=== PATIENT | female | born 1990 | race Caucasian/White ===

== ENCOUNTER → 2018-06-23 15:13 | Outpatient (CLI) | payer MEDICAID, SELFPAY ==
[2018-06-23 18:28] LABS: Chlamydia Trachomatis by PCR Negative (Negative); Neisserai gonorrhoeae by PCR Negative (Negative); Probe Check PASS; Sample Adequacy Control PASS; Specimen Processing Control PASS
== END ==
PROVIDERS: Family Provider Family Medicine; PCP Family Medicine; Visit Provider Nurse Practitioner Women's Health
DX: Z11.3 Encounter for screening for infections with a predominantly sexual mode of transmission (principal)
CPT/HCPCS: 87491; 87591

== ENCOUNTER 2018-12-20 16:37 | Emergency (ER) | payer MEDICAID, SELFPAY ==
[2018-12-15 13:11] VITALS: BMI 31.4
[2018-12-20 16:38] VITALS: BP 134/74; PULSE 88; RESP 16; TEMP 37.3; O2SAT 100; BMI 30.7
--- NOTE | 2018-12-20 16:59 | US_ITS ---
STUDY: ULTRASOUND OF THE FEMALE PELVIS - COMPLETE REASON FOR EXAM: Female, 28 years old. Pain and bleeding after intercourse since IUD placement LMP: Unknown. TECHNIQUE: Transvaginal TECHNICAL QUALITY: Adequate. COMPARISON: None. FINDINGS: The uterus is anteverted and is in a midline position. The uterus measures 6.8 x 4.9 x 3.2 cm. Normal uterine cervix. The endometrium measures 2 mm in thickness, and is hyperechoic. There is no demonstrated endometrial mass. There is no demonstrated myometrial mass. I.U.D. - The patient does have an I.U.D. the IUD is present within the endometrial canal of the mid uterus. The right ovary is visualized. The right ovary measures 2.5 x 1.9 x 2.1 cm. There is no right ovarian cyst or ovarian mass. There is no visualized right adnexal mass or complex lesion. There is normal arterial and normal venous vascularity. The left ovary is visualized. The left ovary measures 4.1 x 3.1 x 2.6 cm. There is a septated left ovarian cyst measuring 2.6 x 2.0 x 2.1 cm. There is no visualized left adnexal mass or complex lesion. There is normal arterial and normal venous vascularity. There is no fluid in the cul-de-sac. Polycystic ovary disease: No. US/Transvaginal Non- IMPRESSION: Intrauterine IUD appearing in adequate position. Septated left ovarian cyst measuring 2.6 x 2.0 x 2.1 cm. Electronically Signed: Mark Luo MD at 18:01 EST , Service support ,
[2018-12-20 17:26] LABS: Bacteria 0 SEEN /hpf (None Seen); Mucous, Urine 0 SEEN /hpf (<or=2+); Red Blood Cells-Urine 0 SEEN /hpf (0-5); White Blood Cells 0 SEEN /hpf (0-5)
[2018-12-20 17:35] LABS: Color, Urine Straw (Yellow); Glucose, Dipstick Normal (Normal); Internal QC Validated? YES +Cl - CLEAR BKGD; Ketone-Dipstick Negative (Negative); Leukocyte Esterase-Dipstick Negative /ul (Negative); Nitrite-Dipstick Negative (Negative); Occult Blood-Urine Negative /ul (Negative); Protein-Dipstick Negative (Negative); Urine Bilirubin Dipstick Negative (Negative); Urine Clarity Clear (Clear); Urine Urobilinogen Normal (Normal)
[2018-12-20 17:36] LABS: Pregnancy, Urine Negative Negative
[2018-12-20 17:43] VITALS: BP 128/80; BP 138/86; BP 142/81; PULSE 112; PULSE 81; PULSE 93
[2018-12-20 17:47] LABS: Squamous Epithelial Cells - UA 0-5 SEEN /hpf (5-10)
[2018-12-20 19:25] VITALS: PULSE 96; RESP 12; O2SAT 98
--- NOTE | 2018-12-20 19:47 | ED.VISSUMM ---
- ER Visit Summary Date of Service: 12/20/18 Chief Complaint: Pelvic pain History of Present Illness: The patient is a 28 F with pelvic pain and cramping over the past 3 weeks. She had an IUD placed last fall. Pelvic pain and cramping has been noted for the past 3 weeks, worse after intercourse. She has noted some spotting. She was seen at her GENERATION MANAGER's office last week. Pelvic exam was performed and revealed no acute abnormalities. She is scheduled for an ultrasound later this week but presents to the ED due to increased pain. She denies urinary symptoms. Physical Examination: Vital signs significant only for temperature 99.2. Patient sitting upright in bed no acute distress. She is nontoxic appearing. Head neck examination normal. Heart is regular rate and rhythm. Lung sounds are clear. Abdomen is soft with mild suprapubic tenderness. No guarding or rebound. Test Results: Urinalysis and urine test are unremarkable. Pelvic ultrasound shows intrauterine IUD in good position. There is a septated left ovarian cyst measuring 2.6 x 2.0 x 2.1 cm. Emergency Department Course and Treatment: Test results are discussed with Dr. Baker as well as the patient. Patient be given prescription for naproxen. She wishes to avoid any controlled substances due to history of drug use. Treatment Plan: [] Disposition: Discharge Impression: Ovarian cyst This note was generated with [employer] dictation software. It may contain incorrect words, spelling, and punctuation that were not noted in review of the chart prior to signing ED Disposition - Plan for ED Patient: Disposition: Home or Assisted Living Instructions: ED Cyst Ovarian Prescriptions: Naproxen [Naprosyn] 500 mg PO BID PRN PRN #20 tablet PRN Reason: Pain Referrals: Angy Baker MD [STAFF PHYSICIAN] - 1 Week if not improving
== END 2018-12-20 19:57 | disposition home or self-care (01) ==
PROVIDERS: Emergency Provider Emergency Medicine; Family Provider Family Medicine; PCP Family Medicine
DX: N83.202 Unspecified ovarian cyst, left side (principal); Z72.0 Tobacco use
CPT/HCPCS: 76830; 81001; 81025; 93976; 99282

== ENCOUNTER → 2019-06-23 08:10 | Outpatient (CLI) | payer MEDICAID, SELFPAY | PROVIDERS: Family Provider Family Medicine; PCP Family Medicine; Referring Provider Family Medicine; Visit Provider Family Medicine | DX: B18.2 Chronic viral hepatitis C (principal) | CPT/HCPCS: 36415; 87521 ==

== ENCOUNTER 2019-10-07 17:19 | Emergency (ER) | payer MEDICAID, SELFPAY ==
[2019-07-13 14:15] VITALS: BMI 30.7
[2019-10-07 17:20] VITALS: BP 139/76; PULSE 111; RESP 16; TEMP 36.4; O2SAT 98; BMI 29.5
[2019-10-07 19:01] LABS: Color, Urine Yellow (Yellow); Glucose, Dipstick Normal (Normal); Ketone-Dipstick Negative (Negative); Leukocyte Esterase-Dipstick Negative /ul (Negative); Nitrite-Dipstick Negative (Negative); Occult Blood-Urine Negative /ul (Negative); Protein-Dipstick Negative (Negative); Specific Gravity, Urine 1.025 (1.002-1.030); Urine Bilirubin Dipstick Negative (Negative); Urine Clarity Sl. Cloudy (Clear); Urine Urobilinogen Normal (Normal)
[2019-10-07 19:10] LABS: Bacteria RARE /hpf (None Seen); Mucous, Urine 1+ /hpf (<or=2+); Red Blood Cells-Urine 0-5 SEEN /hpf (0-5); Squamous Epithelial Cells - UA 0-5 SEEN /hpf (5-10); White Blood Cells 0-5 SEEN /hpf (0-5)
--- NOTE | 2019-10-07 19:12 | ED.DCSUM_ITS ---
- ER Visit Summary Date of Service: 10/07/19 Chief Complaint: Abdominal pain History of Present Illness: The patient is a 29 F who states that about 2 weeks ago she found out she was about 4 weeks . She is G1, P0. 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 She states on she began to feel a intermittent pulling sensation in the lower left abdomen. She had diarrhea that began yesterday. That is continued on today. She denies any cramping or any vaginal bleeding. She tells me that a couple days ago she did speak with her CUT OFF SAW SET UP OPERATOR and discussed this pain. It was felt that she is not having cramping or any bleeding that observation would be best. She denies any urinary symptoms. She also notes some intermittent dizziness. Physical Examination: Afebrile vital signs are stable Gen: Well-nourished well-developed Head: Normocephalic atraumatic Eyes: Perrl EOMI ENT: TMs clear no rhinorrhea moist mucous membranes Neck: Supple no lymphadenopathy no JVD nontender CVS: Regular rate rhythm no murmurs normal S1-S2 Respiratory: No distress clear to auscultation bilaterally chest nontender Abdomen: Soft nontender nondistended normal bowel sounds no masses Back: Nontender Extremity: Nontender no edema Skin: Normal color no rash Neuro: alert orientated ?3 CN II-XII intact normal strength sensation reflexes gait cerebellar Psych: Normal affect normal mood Test Results: Urinalysis is normal Emergency Department Course and Treatment: I sent to the bedside ultrasound. I see an enlarged uterus with what appears to be a gestational sac but I cannot identify any definitive structure. More importantly however I do not see anything in the adnexa or free fluid. Again she is not having any bleeding or cramping and the pain is intermittent. I advised her that I do not see an indication to do an emergent ultrasound at this time. I recommend follow-up with her OB return if worsening or concerns Impression: 1. First trimester 2. Left pelvic pain This note was generated with [employer] dictation software. It may contain incorrect words, spelling, and punctuation that were not noted in review of the chart prior to signing ED Disposition - Plan for ED Patient: Disposition: Home or Assisted Living Instructions: ABDOMINAL PAIN, Early , : Your First Trimester Changes Referrals: Angy Baker MD [STAFF PHYSICIAN] - Keep [facility] appointment
== END 2019-10-07 19:28 | disposition home or self-care (01) ==
PROVIDERS: Emergency Provider Emergency Medicine
DX: O26.891 Other specified pregnancy related conditions, first trimester (principal); R10.2 Pelvic and perineal pain; O99.331 Smoking (tobacco) complicating pregnancy, first trimester; F17.200 Nicotine dependence, unspecified, uncomplicated; Z3A.01 Less than 8 weeks gestation of pregnancy
CPT/HCPCS: 81001; 99282

== ENCOUNTER 2019-10-10 07:18 | Emergency (ER) | payer MEDICAID, SELFPAY ==
[2019-10-10 07:19] VITALS: BP 117/74; PULSE 118; RESP 16; TEMP 36.1; O2SAT 99; BMI 29.5
--- NOTE | 2019-10-10 07:37 | ED.DCSUM_ITS ---
- ER Visit Summary Date of Service: 10/10/19 Chief Complaint: Nausea, vomiting and diarrhea History of Present Illness: The patient is a 29 F recently diagnosed as believes she is 6 weeks . G1, P0 Ab0. She is not due until June she believes. States on Wednesday she just was not feeling well on Wednesday she started having diarrhea and last night started having nausea vomiting and still has some diarrhea. She really denies any abdominal pain. No vaginal bleeding or vaginal discharge. She denies any fever or chills. No dysuria. She states her last menstrual period was around August 27. Physical Examination: Young female no acute distress. Vital signs are stable. She is afebrile. She does not look septic or toxic. HEENT exam she does have dry mucous membranes. Mildly dehydrated. Neck nontender no lymphadenopathy. Lungs clear to auscultation bilaterally. Heart tachycardic rate about 115. No murmur. Abdomen is soft and nontender normal bowel sounds without peritoneal signs. Deep palpation of her abdomen and pelvis there is absolutely no pain. She is nondistended. No signs of obstruction. Patient is moving all 4 extremities. There are neurovascular intact. There is no edema. Back exam nontender. Neurologically she is awake and alert with no focal motor deficits. Test Results: None Emergency Department Course and Treatment: Patient treated with IV fluids. IV Zofran. P.o. challenge. On repeat exam at is doing well at 08 20 5 AM. She has been able to hold down p.o. fluids. Abdomen matt benign. Treatment Plan: Plenty of fluids and rest. [place] diet and increase as tolerated. Zofran as needed for nausea. Return if worse. Follow-up with her LINK TRAINER MECHANIC Dr. Angy Baker if not improving and for scheduled OB appointments. Disposition: Discharge Impression: Acute nausea, vomiting and diarrhea secondary to viral syndrome First trimester This note was generated with [employer] dictation software. It may contain incorrect words, spelling, and punctuation that were not noted in review of the chart prior to signing ED Disposition - Plan for ED Patient: Disposition: Home or Assisted Living Instructions: VOMITING AND DIARRHEA, Nonspecific (Adult) Prescriptions: Ondansetron [Zofran Odt] 4 mg PO Q8H PRN PRN #10 tab PRN Reason: Nausea Prescription Printed Referrals: Angy Baker MD [STAFF PHYSICIAN] - Additional Instructions: Zofran as needed for nausea. Plenty of fluids and rest. [place] diet increase as tolerated. Follow-up with your LINK TRAINER MECHANIC if not improving and for normal appointments.
[2019-10-10] MEDS: 0.9% Normal Saline 1,000 ML 1000 ML IV (07:52)
[2019-10-10] MEDS: Ondansetron 4 MG/2 ML Vial IV (07:53)
--- NOTE | 2019-10-10 08:00 | ED.DEP ---
ED Disposition - Plan for ED Patient: Disposition: Home or Assisted Living Instructions: VOMITING AND DIARRHEA, Nonspecific (Adult) Prescriptions: Ondansetron [Zofran Odt] 4 mg PO Q8H PRN PRN #10 tab PRN Reason: Nausea Prescription Printed Referrals: Angy Baker MD [STAFF PHYSICIAN] - Additional Instructions: Zofran as needed for nausea. Plenty of fluids and rest. Cavalier diet increase as tolerated. Follow-up with your AMMUNITION ASSEMBLY II LABORER if not improving and for normal appointments.
[2019-10-10 08:45] VITALS: BP 114/74; PULSE 76; RESP 16; O2SAT 100
== END 2019-10-10 08:47 | disposition home or self-care (01) ==
PROVIDERS: Emergency Provider Emergency Medicine
DX: O98.511 Other viral diseases complicating pregnancy, first trimester (principal); B34.9 Viral infection, unspecified; O99.331 Smoking (tobacco) complicating pregnancy, first trimester; F17.200 Nicotine dependence, unspecified, uncomplicated; Z3A.01 Less than 8 weeks gestation of pregnancy
CPT/HCPCS: 96361; 96374; 99284; J7030; J2405

== ENCOUNTER → 2019-11-07 09:37 | Outpatient (CLI) | payer MEDICAID, SELFPAY ==
[2019-11-07 08:46] VITALS: BMI 29.5
[2019-11-07 10:09] LABS: Absolute Lymphocyte Count 1.53 X10^3/uL (0.83-4.51); Absolute Neutrophil Count 11.3 X10^3/uL (2.0-7.7); Basophil# 0.05 X10^3/uL; Basophil% 0.4 % (0-1); Eosinophil# 0.12 X10^3/uL; Eosinophils% 0.9 % (0-5); Hematocrit 41.4 % (37-47); Hemoglobin 13.9 g/dL (12.0-15.0); Lymphocyte # 1.53 X10^3/ul (4.0); Lymphocyte % 11.2 % (19-41); Mean Corp Hgb Conc 33.6 g/dL (32-36); Mean Corpuscular Hgb 30.5 pg (27.0-32.0); Mean Corpuscular Volume 90.8 fL (81-99); Monocyte# 0.67 X10^3/uL; Monocyte% 4.9 % (0-10); NRBC Flagged by Analyzer 0 % (0-5); Neutrophil % 82.2 % (47-70); Platelet Count 309 K/mm3 (150-450); RBC Distribution Width CV 12.2 % (11.6-14.6); RBC Distribution Width SD 40.1 fl (35.1-43.9); Red Blood Count 4.56 M/mm3 (4.2-5.4); White Blood Count 13.7 K/mm3 (4.4-11.0)
[2019-11-07 10:25] LABS: AST(SGOT) 9 U/L (15-37); Alanine Aminotransfer ALT/SGPT 18 U/L (13-56); Albumin, Serum 3.5 g/dL (3.2-5.0); Alkaline Phosphatase 51 U/L (45-117); Anion Gap 6 (5-15); BUN 13 mg/dL (7-18); Calcium,Total 9.5 mg/dL (8.5-10.1); Chloride 108 mmol/L (98-107); Creatinine, Serum 0.65 mg/dL (0.55-1.02); EST Glomerular Filtration Rate 115 mL/min (>60); Est Glom Filt Rate - Afr Amer 140 mL/min (>60); Globulin 3.5 g/dL (2.2-4.2); Glucose 116 mg/dL (74-106); Glucose Challenge Gest 1H 50g 116 mg/dL (70-140); Sodium Level 137 mmol/L (136-145)
[2019-11-07 11:14] LABS: HIV - WCH Non-Reactive (Nonreactive); Hepatitis B Surface Antigen Non-Reactive (Nonreactive); Rubella IgG 138.3 IU/mL
[2019-11-07 16:35] LABS: Chlamydia Trachomatis by PCR Negative (Negative); Neisserai gonorrhoeae by PCR Negative (Negative); Probe Check PASS; Sample Adequacy Control PASS; Specimen Processing Control PASS
[2019-11-09 02:24] LABS: Rapid Plasmin Reagin (RPR) NONREACTIVE (NONREACTIVE)
[2019-11-09 16:07] LABS: HCV Quant. RNA PCR HCV Not Detected IU/mL (.)
[2019-11-11 13:07] LABS: HPV Reflexed? NOT INDICATED
== END ==
PROVIDERS: Referring Provider Obstetrics & Gynecology; Visit Provider Obstetrics & Gynecology
DX: Z12.4 Encounter for screening for malignant neoplasm of cervix (principal); O99.211 Obesity complicating pregnancy, first trimester; Z87.898 Personal history of other specified conditions
CPT/HCPCS: 36415; 80053; 82950; 85025; 86592; 86703; 86762; 86850; 86900; 86901; 87086; 87088; 87340; 87491; 87522; 87591; 88175; G0145

== ENCOUNTER → 2019-11-21 10:34 | Outpatient (CLI) | payer MEDICAID, SELFPAY ==
[2019-11-07 08:46] VITALS: BMI 29.5
[2019-11-21 11:38] LABS: NATERA MAILED SPECIMEN
== END ==
PROVIDERS: Referring Provider Nurse Practitioner Women's Health; Visit Provider Nurse Practitioner Women's Health
DX: Z34.82 Encounter for supervision of other normal pregnancy, second trimester (principal)

== ENCOUNTER → 2019-12-06 | Outpatient (CLI) | payer MEDICAID, SELFPAY ==
[2019-12-06 15:34] VITALS: BMI 29.5
[2019-12-06 16:51] LABS: Amphetamine Urine VISTA NEGATIVE (<1000 ng/mL); Barbiturate Urine VISTA NEGATIVE (< 200 ng/mL); Benzodiazepine Urine VISTA NEGATIVE (< 200 ng/mL); Cocaine Urine VISTA NEGATIVE (< 300 ng/mL); Ecstacy Urine VISTA NEGATIVE (< 500 ng/mL); Methadone Urine VISTA NEGATIVE (< 300 ng/mL); PCP Urine VISTA NEGATIVE (< 25 ng/mL); THC Urine VISTA NEGATIVE (< 50 ng/mL); Vista UDS pH Range 7
== END | disposition home or self-care (01) ==
LOC: LABSPEC 16:17
PROVIDERS: Referring Provider Nurse Practitioner Women's Health; Visit Provider Nurse Practitioner Women's Health
DX: F19.21 Other psychoactive substance dependence, in remission (principal)
CPT/HCPCS: 80307

== ENCOUNTER → 2020-01-03 | Outpatient (CLI) | payer MEDICAID, SELFPAY ==
[2020-01-03 15:53] VITALS: BMI 29.5
[2020-01-03 16:43] LABS: Amphetamine Urine VISTA NEGATIVE (<1000 ng/mL); Barbiturate Urine VISTA NEGATIVE (< 200 ng/mL); Benzodiazepine Urine VISTA NEGATIVE (< 200 ng/mL); Cocaine Urine VISTA NEGATIVE (< 300 ng/mL); Ecstacy Urine VISTA NEGATIVE (< 500 ng/mL); Methadone Urine VISTA NEGATIVE (< 300 ng/mL); PCP Urine VISTA NEGATIVE (< 25 ng/mL); THC Urine VISTA NEGATIVE (< 50 ng/mL); Vista UDS pH Range 6
== END | disposition home or self-care (01) ==
LOC: LABSPEC 16:14
PROVIDERS: Referring Provider Nurse Practitioner Women's Health; Visit Provider Nurse Practitioner Women's Health
DX: F19.21 Other psychoactive substance dependence, in remission (principal)
CPT/HCPCS: 80307

== ENCOUNTER → 2020-02-29 08:24 | Outpatient (CLI) | payer MEDICAID, SELFPAY ==
[2020-02-01 09:30] VITALS: BMI 29.5
[2020-02-29 08:44] LABS: Absolute Lymphocyte Count 1.43 X10^3/uL (0.83-4.51); Absolute Neutrophil Count 12.3 X10^3/uL (2.0-7.7); Basophil# 0.04 X10^3/uL; Basophil% 0.3 % (0-1); Eosinophils% 0.7 % (0-5); Hematocrit 37.9 % (37-47); Hemoglobin 12.5 g/dL (12.0-15.0); Lymphocyte # 1.43 X10^3/ul (4.0); Lymphocyte % 9.8 % (19-41); Mean Corpuscular Hgb 30.1 pg (27.0-32.0); Mean Corpuscular Volume 91.3 fL (81-99); Mean Platelet Vol. 9.1 fl (6.2-12.0); Monocyte# 0.53 X10^3/uL; Monocyte% 3.7 % (0-10); NRBC Flagged by Analyzer 0 % (0-5); Neutrophil # 12.27 X10^3/uL (2.7-7.7); Neutrophil % 84.5 % (47-70); Platelet Count 301 K/mm3 (150-450); RBC Distribution Width SD 43.4 fl (35.1-43.9); Red Blood Count 4.15 M/mm3 (4.2-5.4); White Blood Count 14.5 K/mm3 (4.4-11.0)
[2020-02-29 09:13] LABS: ALB/GLOB Ratio 0.7 RATIO (0.9-2.4); AST(SGOT) 15 U/L (15-37); Alanine Aminotransfer ALT/SGPT 30 U/L (13-56); Albumin, Serum 2.7 g/dL (3.2-5.0); Alkaline Phosphatase 82 U/L (45-117); Anion Gap 9 (5-15); BUN 9 mg/dL (7-18); BUN/Creat Ratio 13.6 RATIO (10-20); Calcium,Total 8.8 mg/dL (8.5-10.1); Chloride 109 mmol/L (98-107); Creatinine, Serum 0.66 mg/dL (0.55-1.02); EST Glomerular Filtration Rate 113 mL/min (>60); Est Glom Filt Rate - Afr Amer 137 mL/min (>60); Globulin 3.8 g/dL (2.2-4.2); Glucose 129 mg/dL (74-106); Glucose Challenge Gest 1H 50g 129 mg/dL (70-140); Potassium 3.7 mmol/L (3.5-5.1); Protein, Total 6.5 g/dL (6.4-8.2); Sodium Level 139 mmol/L (136-145)
[2020-03-02 03:06] LABS: HCV Quant. RNA PCR HCV Not Detected IU/mL (.)
== END ==
PROVIDERS: Referring Provider Obstetrics & Gynecology; Visit Provider Obstetrics & Gynecology
DX: O09.90 Supervision of high risk pregnancy, unspecified, unspecified trimester (principal); O98.419 Viral hepatitis complicating pregnancy, unspecified trimester; B19.20 Unspecified viral hepatitis C without hepatic coma; Z3A.00 Weeks of gestation of pregnancy not specified
CPT/HCPCS: 36415; 80053; 82950; 85025; 87522

== ENCOUNTER → 2020-04-03 10:55 | Outpatient (CLI) | payer MEDICAID, SELFPAY ==
[2020-04-03 10:33] VITALS: BMI 29.5
[2020-04-03 11:41] LABS: Absolute Lymphocyte Count 1.69 X10^3/uL (0.83-4.51); Absolute Neutrophil Count 13.1 X10^3/uL (2.0-7.7); Basophil# 0.05 X10^3/uL; Basophil% 0.3 % (0-1); Eosinophils% 0.6 % (0-5); Hematocrit 39.5 % (37-47); Hemoglobin 12.9 g/dL (12.0-15.0); Lymphocyte # 1.69 X10^3/ul (4.0); Lymphocyte % 10.6 % (19-41); Mean Corp Hgb Conc 32.7 g/dL (32-36); Mean Corpuscular Hgb 29.9 pg (27.0-32.0); Mean Corpuscular Volume 91.4 fL (81-99); Mean Platelet Vol. 9.4 fl (6.2-12.0); Monocyte# 0.79 X10^3/uL; NRBC Flagged by Analyzer 0 % (0-5); Neutrophil # 13.14 X10^3/uL (2.7-7.7); Neutrophil % 82.4 % (47-70); Platelet Count 335 K/mm3 (150-450); RBC Distribution Width CV 13.1 % (11.6-14.6); RBC Distribution Width SD 43.6 fl (35.1-43.9); Red Blood Count 4.32 M/mm3 (4.2-5.4); White Blood Count 15.9 K/mm3 (4.4-11.0)
[2020-04-03 11:57] LABS: ALB/GLOB Ratio 0.6 RATIO (0.9-2.4); AST(SGOT) 19 U/L (15-37); Alanine Aminotransfer ALT/SGPT 37 U/L (13-56); Albumin, Serum 2.7 g/dL (3.2-5.0); Alkaline Phosphatase 115 U/L (45-117); Anion Gap 8 (5-15); BUN 10 mg/dL (7-18); BUN/Creat Ratio 14.5 RATIO (10-20); Calcium,Total 9.1 mg/dL (8.5-10.1); Chloride 109 mmol/L (98-107); Creatinine, Serum 0.69 mg/dL (0.55-1.02); EST Glomerular Filtration Rate 107 mL/min (>60); Est Glom Filt Rate - Afr Amer 130 mL/min (>60); Globulin 4.4 g/dL (2.2-4.2); Glucose 85 mg/dL (74-106); Potassium 3.8 mmol/L (3.5-5.1); Protein, Total 7.1 g/dL (6.4-8.2); Sodium Level 139 mmol/L (136-145)
[2020-04-03 12:18] LABS: Protein, Urine (Random) 46.9 mg/dL (<11.9); Protein:Creat Ratio 119 mg/g CRE (0-200)
--- NOTE | 2020-04-03 18:21 | US_ITS ---
STUDY: ABDOMINAL ULTRASOUND - RIGHT UPPER QUADRANT REASON FOR VISIT: Female, 29 years old upper abdominal pain for a few days. Dull pain. 31 weeks . TECHNIQUE: Ultrasound evaluation of the right upper quadrant was performed with real-time and static mcknight-scale imaging. TECHNICAL QUALITY: Adequate. COMPARISON: CT of the abdomen and pelvis, July 11, 2017. FINDINGS: Liver: The liver measures 17.9 cm. There is normal echogenicity of the liver. The bile ducts are within normal limits. There is hepatic color flow. The direction of portal flow is hepatopetal. There is no demonstrated mass lesion. Gallbladder: Normal distended gallbladder. The gallbladder wall measures 2 mm. There is a negative sonographic Banuelos''s sign. There is no pericholecystic fluid. There are no gallstones. Common Bile Duct (C.B.D.): The common bile duct measures 4 mm. Pancreas: Normal size of the body and proximal tail of the pancreas. The head and distal talus obscured by bowel gas. There is normal echogenicity of the pancreas. There is no demonstrated pancreatic mass or cyst. Right Kidney: Normal size of the right kidney. The right kidney measures 10.6 cm. Normal renal cortex. The right cortex measures 2.0 cm. There is no demonstrated renal mass or cyst. There is no right hydronephrosis. US/Abdomen Limited IMPRESSION: 1. Mildly limited visualization of pancreas due to bowel gas. 2. Essentially normal right upper quadrant abdominal ultrasound. Electronically Signed: Bruce Clemons DO at 21:07 EDT Tel [phone], Service support ,
== END ==
PROVIDERS: Nurse Practitioner Women's Health; Referring Provider Obstetrics & Gynecology; Visit Provider Obstetrics & Gynecology
DX: O98.419 Viral hepatitis complicating pregnancy, unspecified trimester (principal); B19.20 Unspecified viral hepatitis C without hepatic coma; Z3A.00 Weeks of gestation of pregnancy not specified
CPT/HCPCS: 36415; 76705; 80053; 82570; 84156; 85025

== ENCOUNTER → 2020-05-08 | Outpatient (CLI) | payer MEDICAID, SELFPAY ==
[2020-05-08 10:53] VITALS: BMI 29.5
== END | disposition home or self-care (01) ==
LOC: LABSPEC 15:11
PROVIDERS: Visit Provider Obstetrics & Gynecology
DX: O09.90 Supervision of high risk pregnancy, unspecified, unspecified trimester (principal); Z3A.00 Weeks of gestation of pregnancy not specified
CPT/HCPCS: 87081

== ENCOUNTER → 2020-05-15 | Outpatient (CLI) | payer MEDICAID, SELFPAY ==
[2020-05-15 14:22] VITALS: BMI 29.5
[2020-05-15 17:51] LABS: Amphetamine Urine VISTA NEGATIVE (<1000 ng/mL); Barbiturate Urine VISTA NEGATIVE (< 200 ng/mL); Benzodiazepine Urine VISTA NEGATIVE (< 200 ng/mL); Cocaine Urine VISTA NEGATIVE (< 300 ng/mL); Ecstacy Urine VISTA NEGATIVE (< 500 ng/mL); Methadone Urine VISTA NEGATIVE (< 300 ng/mL); PCP Urine VISTA NEGATIVE (< 25 ng/mL); THC Urine VISTA NEGATIVE (< 50 ng/mL); Vista UDS pH Range 6
== END | disposition home or self-care (01) ==
LOC: LABSPEC 16:42
PROVIDERS: Referring Provider Obstetrics & Gynecology; Visit Provider Obstetrics & Gynecology
DX: F19.21 Other psychoactive substance dependence, in remission (principal)
CPT/HCPCS: 80307

== ENCOUNTER → 2020-05-22 11:17 | Outpatient (CLI) | payer MEDICAID, SELFPAY ==
[2020-05-22 11:10] VITALS: BMI 29.5
[2020-05-22 12:10] LABS: ALB/GLOB Ratio 0.6 RATIO (0.9-2.4); AST(SGOT) 20 U/L (15-37); Alanine Aminotransfer ALT/SGPT 36 U/L (13-56); Albumin, Serum 2.6 g/dL (3.2-5.0); Alkaline Phosphatase 164 U/L (45-117); Anion Gap 7 (5-15); BUN 10 mg/dL (7-18); BUN/Creat Ratio 13.7 RATIO (10-20); Calcium,Total 9.3 mg/dL (8.5-10.1); Chloride 106 mmol/L (98-107); Creatinine, Serum 0.73 mg/dL (0.55-1.02); EST Glomerular Filtration Rate 101 mL/min (>60); Est Glom Filt Rate - Afr Amer 122 mL/min (>60); Globulin 4.7 g/dL (2.2-4.2); Glucose 84 mg/dL (74-106); Potassium 4.1 mmol/L (3.5-5.1); Protein, Total 7.3 g/dL (6.4-8.2); Sodium Level 135 mmol/L (136-145)
[2020-05-25 20:11] LABS: HCV Quant. RNA PCR HCV Not Detected IU/mL (.)
== END ==
PROVIDERS: Referring Provider Obstetrics & Gynecology; Visit Provider Obstetrics & Gynecology
DX: B19.20 Unspecified viral hepatitis C without hepatic coma (principal)
CPT/HCPCS: 36415; 80053; 87522

== ENCOUNTER → 2020-05-31 | Outpatient (CLI) | payer MEDICAID, SELFPAY ==
[2020-05-29 10:48] VITALS: BMI 29.5
== END | disposition home or self-care (01) ==
LOC: LABSPEC 11:13
PROVIDERS: Referring Provider Obstetrics & Gynecology; Visit Provider Obstetrics & Gynecology
DX: Z11.59 Encounter for screening for other viral diseases (principal)
CPT/HCPCS: 87635; 94799; U0003

== ENCOUNTER 2020-06-09 07:00 | Inpatient (IN) | payer MEDICAID, SELFPAY ==
[2020-05-29 10:48] VITALS: BMI 29.5
[2020-06-05 11:02] VITALS: BMI 37.6
[2020-06-09] VITALS (44 sets, daily range): BP systolic 104–136; BP diastolic 53–91; PULSE 64–108; TEMP 36.3–37; O2SAT 87–100; BMI 37.5
--- NOTE | 2020-06-09 07:31 | HP.PCM_ITS ---
- Problem List (1) Post-dates Status: Acute (2) Depression Status: Chronic Qualifiers: Comment: sees one eighty, counseling no meds (3) Hepatitis C Status: Acute Qualifiers: Comment: treated 2014. check RNA level and CMP q trimester. 05/22 hep c rna normal (4) History of drug dependence Status: Chronic Comment: in recovery since april 2018, heroin/meth/fentanyl. random tox screens.(03/27 neg) (5) Pelvic fracture Status: Acute Comment: not involving canal (6) Status: Acute Qualifiers: Comment: NIPT low risk. 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 FOB negative testing. declined ntd screen. 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 Is patient in pain?: No Allergies gabapentin Allergy (Intermediate, Verified 06/05/20 11:02) Swollen lymph glands Medications docosahexaenoic acid 200 mg capsule mg PO 11/07/19 [History Confirmed 06/05/20] nicotine 21mg/24hr-14mg/24hr-7mg/24hr daily transderm patch,sequential 1 patch TRANSDERMAL DAILY #56 patch 11/07/19 [Rx Confirmed 06/05/20] ondansetron 4 mg disintegrating tablet 4 mg PO Q8H PRN PRN #30 tab 05/22/20 [Rx Confirmed 06/05/20] Last Menstral Period: 08/27/19 Zika: Zika virus screening: Negative : No PFSH PFSH Medical History HPV test positive (Acute) History of abnormal cervical Pap smear (Acute) History of drug use (Acute) History of hepatitis C (Acute) Pelvic fracture (Acute) Surgical History History of wisdom tooth extraction, class II edentulism (Acute) Status post wrist surgery (Acute) Family History Father Heart disease Social History (Updated 06/09/20 @ 05:[address] Angy Baker MD) Smoking Status: Current every day smoker alcohol intake: never substance use type: does not use caffeine: Yes what type of physical activity do you participate in: none frequency: 1-2 times per week seatbelt use: always do you feel safe at home: Yes additional social history: Tsdpdee-Hjybksn-Lcrqmiq Patient works at [employer] in [employer] Pregancy History 1 Elective abortions Hx Para Spontaneous abortions Hx # Term Pregnancies Ectopic pregnancies Hx # Pregnancies Multiple births # of living children HPI est ob 40w: Details: PERCY MARSHALL is a 29 year old who presents for routine OB visit. She will be induced at 41 weeks if no spontaneous labor prior. OB Visit ANKUR Calculator Estimated Delivery Date Method Current WG Current Estimate 06/02/20 LMP (Certain) 41w 0d Expected Delivery Route/Plan Labor Preferences- labor support person: Walker pain management options preferred: undecided cut cord/dad catch: yes : yes PP control planned: pill discussed possible routes of delivery and associated risks: discussed possible delivery modalities and possible indications for each including R/B/A of , VAVD, and CS. questions answered. special requests: none Specific Issue/Plans flu vaccine: declines tdap vaccine: given rhogam: na LARC form signed: yes movement and labor precautions reviewed. Problem list reviewed and updated with the most current plan of care details and appropriate orders placed. Relevant counseling for the gestational age provided. Continue routine care and follow up unless otherwise noted in visit notes/problem list details Initial Weight: 217 lb Date EGA Weight BP Urine Prot Glucose FHR FuHt Pres Dilation Effaced St Visit Note 11/07/19 10w 2d 217 lb (+0 oz) 118/77 12/06/19 14w 3d 222 lb (+5 lb) 118/72 Negative Negative 152 MH-no VB, LOF. Nausea improving. Order MFM anatomy US. Enc CB classes MH-no VB, LOF. Nausea improving. Order MFM anatomy US. Enc CB classes. Tox screen 01/03/20 18w 3d 225 lb 4 oz (+8 lb 4 oz) 138/86 Negative Negative 154 MH-doing better with nausea. Occa zofran use. No VB, LOF. Anatomy US scheduled. 02/01/20 22w 4d 231 lb 4 oz (+14 lb 4 oz) 120/68 Negative Negative 145 22 SM- no vb cramping check lfts and rna 02/29/20 26w 4d 132/82 Negative Negative 145 26 SM- no vb lof good fm no regular ctx, cbc gct today 04/03/20 31w 3d 245 lb (+28 lb) 132/88 Negative Negative 151 31 Work in for worsening RUQ pain X 3 days, nausea. Headache. No vision changes. No itching. NO VB, LOF. Good FM. No CTX. Pre E labs and gallbladder US 04/24/20 34w 3d 247 lb (+30 lb) 132/88 Trace Negative 155 34 Cephalic SM- no vb lof good fm no regualr ctx 05/08/20 36w 3d 252 lb 8 oz (+35 lb 8 oz) 130/80 Trace Negative 145 36 Cephalic SM- no vb lofgood fm no regular ctx gbs done 05/15/20 37w 3d 256 lb 6 oz (+39 lb 6 oz) 130/68 Negative Negative 140 38 Cephalic 0 SM- no vb lof good fm no regular ctx 05/22/20 38w 3d 256 lb (+39 lb) 130/80 Negative Negative 140 38 Cephalic 1 SM- no vb lof good fm no regular ctx 05/29/20 39w 3d 256 lb (+39 lb) 126/82 Negative Negative 140 39 Cephalic 1 SM- no vb lof good fm no regular ctx 06/05/20 40w 3d 255 lb (+38 lb) 132/82 Negative Negative 140 40 Cephalic 1.5 SM- no vb lof good fm no regular ctx plan IOL if no spontaneous labor ACOG First Trimester First Trimester: Desire for , Alcohol, Tobacco Cessation, Illicit/Recreational Drug/Substance Use, Intimate Partner Violence, Barriers to care, Unstable Housing, Communication Barriers, Environmental/Work Hazards, Anticipated Course of Care, Toxoplasmosis Precations, Use of Any medications, Sexual activity, Exercise, Dental Care, Sauna/Hot tub use, Seat Belt use, Childbirth classes/Hospital facilities, , Travel, Indications for US and Screening for Aneuploidy Second Trimester Second Trimester: Signs and Symptoms of Labor, Selecting a care provider, Reproductive Life Planning, Care Planning, Tobacco Cessation, Depression/Anxiety and Intimate Partner Violence Third Trimester Third Trimester: Pain Management Plans, Labor support person(s), Immediate Larc, Movement Monitoring and Feeding Yes ; discussed Trial of Labor after Counseling or discussed Circumcision preference Diagnostics Diagnostics Diagnostics Glucose 1 Hr 50 gm 129 mg/dL (70-140) 02/29/20 Hgb 12.9 g/dL (12.0-15.0) 04/03/20 Hct 39.5 % (37-47) 04/03/20 Details: HIV: Urine Culture: Sequential Screen: NIPT Screen: ROS Const Reports system reviewed and no additional complaints, except as docu Card Reports system reviewed and no additional complaints, except as docu Resp Reports system reviewed and no additional complaints, except as docu GI Reports system reviewed and no additional complaints, except as docu, Reports nausea Reports system reviewed and no additional complaints, except as docu Musc Reports system reviewed and no additional complaints, except as docu Exam Const General: cooperative, healthy appearing, comfortable, anxious HENAK Head: normal to inspection Nose: external nose normal Face and sinus: normal facial exam Neck Neck: normal visual inspection, full ROM, no lymphadenopathy Thyroid: thyroid normal Chest Chest palpation & inspection: normal inspection of the chest Resp Effort & Inspection: normal respiratory effort GI Inspection: normal to inspection Palpation: soft, other (gravid uterus) Other: infant vertex and appropriate size for gestational age Other: Cervical Exam: Extrem General: pedal edema Results POC Urinalysis 2 Dip (Clinic) Office Urine Glucose Negative Last Edit by Rachna Donahue on 06/05/20 11:16 Office Urine Protein Negative Last Edit by Rachna Donahue on 06/05/20 11:16 Assessment & Plan Problems 1. Pelvic fracture S32.9XXA not involving canal 2. Hepatitis C B19.20 treated 2014. check RNA level and CMP q trimester. 05/22 hep c rna normal 3. 40 weeks gestation of Z3A.40 NIPT low risk. 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 FOB negative testing. declined ntd screen. Anatomy normal 4. Supervision of high risk , antepartum O09.90 PRR ANKUR 06/02/20 Girl ?Ingrid perezabelino Cardoso (ortiz) 5. Tobacco use affecting , antepartum O99.330 encouraged cessation, nicotine patch PRN 6. History of drug dependence F19.21 in recovery since april 2018, heroin/meth/fentanyl. random tox screens.(03/27 neg) 7. Depression F32.9 sees one eighty, counseling no meds Plan plan IOL at 41 weeks Patient presents IOL, plan management for with pitocin/AROM. after FB Pain management: plans epidural. GBS negative. Management of any complications: hep C history, negative RNA last testing this trimester. tox screen at admission I have reviewed the [facility] and made any clinically relevant updates. Orders Orders: POC Urinalysis 2 Dip (Clinic) 06/05/20 Coding Level of Care Code Off vis,est,level 3 Diagnoses Pelvic fracture S32.9XXA Hepatitis C B19.20 40 weeks gestation of Z3A.40 ??Weeks of gestation: 40 weeks Supervision of high risk , antepartum O09.90 Tobacco use affecting , antepartum O99.330 History of drug dependence F19.21 Depression F32.9
[2020-06-09] MEDS: Lactated Ringers 1,000 ML 200 ML IV ×3 (07:40→16:13)
[2020-06-09 07:55] LABS: Absolute Lymphocyte Count 1.77 X10^3/uL (0.83-4.51); Absolute Neutrophil Count 13.3 X10^3/uL (2.0-7.7); Basophil# 0.03 X10^3/uL; Basophil% 0.2 % (0-1); Eosinophil# 0.06 X10^3/uL; Eosinophils% 0.4 % (0-5); Hematocrit 39.2 % (37-47); Hemoglobin 12.9 g/dL (12.0-15.0); Lymphocyte # 1.77 X10^3/ul (4.0); Mean Corp Hgb Conc 32.9 g/dL (32-36); Mean Corpuscular Hgb 29.8 pg (27.0-32.0); Mean Corpuscular Volume 90.5 fL (81-99); Mean Platelet Vol. 9.6 fl (6.2-12.0); Monocyte# 0.77 X10^3/uL; Monocyte% 4.8 % (0-10); NRBC Flagged by Analyzer 0 % (0-5); Neutrophil # 13.32 X10^3/uL (2.7-7.7); Neutrophil % 82.9 % (47-70); Platelet Count 306 K/mm3 (150-450); RBC Distribution Width CV 13.6 % (11.6-14.6); RBC Distribution Width SD 44.6 fl (35.1-43.9); Red Blood Count 4.33 M/mm3 (4.2-5.4); White Blood Count 16.1 K/mm3 (4.4-11.0)
[2020-06-09] MEDS: Oxytocin 30 units/NS 500 ml 30 UNITS/500 ML IV.SOLN IV (08:10)
[2020-06-09] MEDS: 0.9% Normal Saline Single 100 ML IV.SOLN. IY (08:49)
[2020-06-09 10:27] LABS: Probe Check PASS; Specimen Processing Control PASS
[2020-06-09] MEDS: Lactated Ringers 500 ML 999 ML IV ×3 (13:30→23:32)
[2020-06-09] MEDS: fentaNYL-bupivacaine (epidural) 100 ML BAG EPIDURAL ×2 (14:10→18:13)
[2020-06-09] MEDS: Ondansetron 4 MG/2 ML Vial IV ×2 (16:13→21:06)
--- NOTE | 2020-06-09 18:24 | PCM.PN.BLA ---
Progress Note cat I-II tracing overall reassuring. discussed with nursing, no cervical change recommend pitocin washout and then restart at half. iupc in place. STROKE Vital Signs/Narrative: Vital Signs Temp Pulse BP Pulse Ox 06/09/20 17:59 97.9 F 95 128/64 H 06/09/20 17:58 97.9 F 06/09/20 17:03 97.7 F L 72 110/57 L 98 06/09/20 16:11 74 97 06/09/20 16:07 97.5 F L 75 104/59 L 98 06/09/20 16:06 97.7 F L 98 06/09/20 15:18 72 113/60 06/09/20 15:16 94 98 06/09/20 15:11 92 98 06/09/20 15:07 97 06/09/20 15:06 108 H 117/65 99
[2020-06-09] MEDS: Mag Hydrox/Al Hydrox/Simeth 30 ML UDC PO (21:07)
[2020-06-10] VITALS (33 sets, daily range): BP systolic 71–131; BP diastolic 44–80; PULSE 72–108; RESP 14–18; TEMP 36.1–37.1; O2SAT 97–100
[2020-06-10] MEDS: Lactated Ringers 1,000 ML 200 ML IV ×2 (00:06→04:43)
[2020-06-10] MEDS: Ondansetron 4 MG/2 ML Vial IV ×2 (01:26→05:40)
[2020-06-10] MEDS: Sodium Citrate/Citric Acid 30 ML UDC PO (02:45)
[2020-06-10] MEDS: fentaNYL-bupivacaine (epidural) 100 ML BAG EPIDURAL (04:33)
--- NOTE | 2020-06-10 05:31 | PCM.PN.BLA ---
Progress Note Category 2 heart tracing with moderate variability intermittent variables overall reassuring. Patient has been pushing for 3 hours with an arrest of descent at +1 station and significant It. Patient has a history of a pelvic fracture and pelvic shape is assessed to be android in nature. It was discussed with the patient continuing pushing for an additional hour if desired but I do feel that she has been pushing adequately and effectively and I am diagnosing her with CPD at this time. Patient wishes to proceed now as opposed to pushing an additional hour which is reasonable. Plan to proceed with VASQUEZ . STROKE Vital Signs/Narrative: Vital Signs Temp Pulse BP Pulse Ox 06/10/20 05:20 85 111/63 97 06/10/20 05:19 98.8 F 06/10/20 04:31 92 124/72 H 06/10/20 04:30 97.0 F L 97 06/10/20 03:14 75 117/57 L 97 06/10/20 02:17 97.9 F 06/10/20 02:15 93 129/79 H 98
--- NOTE | 2020-06-10 05:34 | PCM.OPRPT ---
Problem List (1) Post-dates Status: Acute (2) Depression Status: Chronic Qualifiers: Comment: sees one eighty, counseling no meds (3) Hepatitis C Status: Acute Qualifiers: Comment: treated 2014. check RNA level and CMP q trimester. 05/22 hep c rna normal (4) History of drug dependence Status: Chronic Comment: in recovery since april 2018, heroin/meth/fentanyl. random tox screens.(03/27 neg) (5) Pelvic fracture Status: Acute Comment: not involving canal (6) Status: Acute Qualifiers: Comment: NIPT low risk. 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 FOB negative testing. declined ntd screen. Anatomy normal (7) Supervision of high risk , antepartum Status: Acute Comment: PRR ANKUR 06/02/20 Girl ?Ingrid Cardoso (ortiz) (8) Tobacco use affecting , antepartum Status: Acute Comment: encouraged cessation, nicotine patch PRN (9) CPD (cephalo-pelvic disproportion) Status: Acute Report of Operation Date of Procedure: 06/10/20 Delivery Classification: VASQUEZ Final ANKUR: 06/02/20 Gestational age: 41 Weeks and 1 Days director of corporate sponsorships: Demar Chacon Type of Anesthesia:: Epidural Special Medications: none Implants Used: none Date of Procedure: 06/10/20 Pre-Operative Diagnosis: arrest of descent 10 cm, pushing x 3 hours. +1 station history of pelvic fracture, cpd Post-Operative Diagnosis: same plus cervical extension Indications for : Arrrest of Descent, Suspected cephalopelvic disproportion Description of Procedure: 29-year-old G1, P0 at 41 weeks presents for induction of labor secondary to postdates. Patient underwent Pitocin and Lambert bulb and artificial rupture membranes for clear fluid. She underwent a Pitocin washout and Pitocin was restarted after an arrest at 5 cm and -1 -2 station. Patient then began making cervical change again and was complete after 7 hours. Patient began pushing with good effort and effectively and pushed for 3 hours with no descent and significant It. It was discussed with the patient the decision to either proceed with now versus giving an extra hour to push. Patient wishes to proceed now. CPD is suspected and patient has a history of a pelvic fracture which may be compounding the current presentation. The patient was placed in the dorsal supine position with leftward tilt. Patient was prepped and draped in the normal sterile fashion. Pfannenstiel skin incision was made with the scalpel and carried through to the underlying layer of fascia with the scalpel. Fascia was nicked in the midline and the incision extended laterally. The rectus bellies were dissected off superiorly and inferiorly with out complication both sharply and bluntly. The peritoneum was entered digitally. The incision was stretched and a low transverse uterine incision was made with the scalpel. The infant's head was delivered atraumatically followed by the anterior and posterior shoulders without complication the rest of the delivered. The cord was clamped and cut and the infant was handed off to awaiting nurse. The placenta was delivered spontaneously immediately following and was noted to be intact and have a three-vessel cord. The uterus was exteriorized cleared of all clots and debris, and the incision was closed in a double layer closure using #1 Monocryl. a cervical extension was noted going down the right side of the incision. this was closed and oversewn, checked and no hematoma seen forming. The ovaries and fallopian tubes were noted to be within normal limits. The uterus was returned to the maternal abdomen and gutters were cleared of all clots and debris. The peritoneum was closed with 3-0 Monocryl in a running fashion. Gloves were changed prior to fascial closure. Fascia was closed with 0 PDS in a running fashion. Subcutaneous tissue was copiously irrigated and the skin was closed with 3-0 Monocryl in a subcuticular fashion. Mepilex dressing was applied without complication. Patient was taken to recovery in stable condition. It was discussed with the patient that based on the clinical information obtained during this encounter, combined with her history, at this time I would recommend for future deliveries if further pregnancies are desired. Amniotic Membrane Rupture Type: Artificial Amniotic Fluid Description: Lightly stained meconium Placenta Disposition: [facility] Drain: Lambert to straight drain Cord Vessel Description: 3 Vessels Infant Gender: Female Delayed cord clamping: Yes Antibiotic Given: Ancef 2 grams IV x1, Zithromax 500 mg/5 mL X1 Pt instructed on risks of surgery: Bleeding, Anesthesia Risks, Infection, Need for Future C-Sections, Injury to surrounding structure(s) including bowel and bladder - Admit VTE Documentation VTE Present on Admission: No VTE Mechan Device Prophylaxis: SCD's Multi Select Codes - Urinary/Genital Urinary/Genital CPT Codes: 02562 delivery+PP Care([facility])
[2020-06-10] MEDS: Cefazolin 2 GM in 0.9% Normal Saline 100 ML IV (05:46)
[2020-06-10] MEDS: Methylergonovine 0.2 MG/ML Ampul IM (07:21)
--- NOTE | 2020-06-10 07:21 | NURSING ---
Methergine x1 given per Teto Diallo RN. Verified by Teto Diallo & Audrey Kyle RN. Med not currently active on jan. Order will be placed.
[2020-06-10] MEDS: Carboprost Tromethamine 250 MCG/ML Ampul IM (07:29)
--- NOTE | 2020-06-10 07:29 | MDS.RN ---
Hemabate given per Teto Diallo RN
[2020-06-10] MEDS: Lactated Ringers 1,000 ML 999 ML IV (07:39)
[2020-06-10 08:06] LABS: Absolute Lymphocyte Count 0.97 X10^3/uL (0.83-4.51); Absolute Neutrophil Count 23.9 X10^3/uL (2.0-7.7); Basophil# 0.05 X10^3/uL; Basophil% 0.2 % (0-1); Differential Indicated SCAN CRITERIA MET; Eosinophil# 0.07 X10^3/uL; Eosinophils% 0.3 % (0-5); Hematocrit 29.1 % (37-47); Hemoglobin 9.5 g/dL (12.0-15.0); Lymphocyte # 0.97 X10^3/ul (4.0); Lymphocyte % 3.7 % (19-41); Mean Corp Hgb Conc 32.6 g/dL (32-36); Mean Corpuscular Hgb 29.7 pg (27.0-32.0); Mean Corpuscular Volume 90.9 fL (81-99); Mean Platelet Vol. 9.9 fl (6.2-12.0); Monocyte# 1.19 X10^3/uL; Monocyte% 4.5 % (0-10); NRBC Flagged by Analyzer 0 % (0-5); Neutrophil # 23.93 X10^3/uL (2.7-7.7); Neutrophil % 90.7 % (47-70); POSITIVE DIFFERENTIAL YES; Platelet Count 295 K/mm3 (150-450); RBC Distribution Width CV 13.4 % (11.6-14.6); RBC Distribution Width SD 44.1 fl (35.1-43.9); White Blood Count 26.4 K/mm3 (4.4-11.0)
[2020-06-10 08:27] LABS: Differential Comment SCANNED
[2020-06-10 08:27] LABS: International Normalized Ratio 1.2; Prothrombin Time (Protime)PT. 14.5 SECONDS (11.7-14.9)
[2020-06-10 08:28] LABS: Fibrinogen 363 mg/dl (203-444); Partial Thromboplast Time 28.4 Seconds (24.1-36.2)
--- NOTE | 2020-06-10 08:33 | NURSING ---
Upon giving report to Teto Diallo RN at approximately 0720, blood was noted on patient's sheets. Pulled back sheets to assess patient's bleeding to find several large clots and a saturated pad. Immediately massaged fundus. Fundus was boggy. Charge nurses Kathryn Rios & Jourdan Heller notified of patient's status. Methergine was given. Dr. Baker then walked in room to round on patient and assessed situation. See hemorrhage checklist for the remaining interventions.
--- NOTE | 2020-06-10 08:43 | NURSING ---
Difficult to assess fundus location due to deep set uterus
[2020-06-10] MEDS: Lactated Ringers 1,000 ML 100 ML IV ×2 (09:15→14:15)
[2020-06-10] MEDS: Oxytocin 30 units/NS 500 ml 30 UNITS/500 ML IV.SOLN 167 UNITS IV (09:15)
[2020-06-10 14:10] LABS: International Normalized Ratio 1.1; Prothrombin Time (Protime)PT. 13.3 SECONDS (11.7-14.9)
[2020-06-10 14:11] LABS: Fibrinogen 316 mg/dl (203-444); Partial Thromboplast Time 21.6 Seconds (24.1-36.2)
[2020-06-10] MEDS: Acetaminophen 500 MG Tablet 1000 MG PO ×2 (14:14→19:47)
[2020-06-10] MEDS: Ketorolac 30 MG/ML Syringe IV ×2 (14:15→19:48)
[2020-06-10] MEDS: Cefazolin 1 GM/50 ML BAG IV ×2 (14:21→22:00)
[2020-06-10 14:35] LABS: ALB/GLOB Ratio 0.5 RATIO (0.9-2.4); AST(SGOT) 18 U/L (15-37); Alanine Aminotransfer ALT/SGPT 17 U/L (13-56); Albumin, Serum 1.5 g/dL (3.2-5.0); Alkaline Phosphatase 107 U/L (45-117); Anion Gap 6 (5-15); BUN 12 mg/dL (7-18); BUN/Creat Ratio 14.3 RATIO (10-20); Calcium,Total 7.3 mg/dL (8.5-10.1); Chloride 107 mmol/L (98-107); Creatinine, Serum 0.84 mg/dL (0.55-1.02); EST Glomerular Filtration Rate 86 mL/min (>60); Est Glom Filt Rate - Afr Amer 104 mL/min (>60); Globulin 2.9 g/dL (2.2-4.2); Glucose 111 mg/dL (74-106); Potassium 4.3 mmol/L (3.5-5.1); Protein, Total 4.4 g/dL (6.4-8.2); Sodium Level 137 mmol/L (136-145)
[2020-06-10 15:00] LABS: Absolute Lymphocyte Count 1.45 X10^3/uL (0.83-4.51); Absolute Neutrophil Count 22.4 X10^3/uL (2.0-7.7); Basophil# 0.04 X10^3/uL; Basophil% 0.2 % (0-1); Eosinophil# 0.01 X10^3/uL; Hematocrit 26.6 % (37-47); Hemoglobin 8.9 g/dL (12.0-15.0); Lymphocyte # 1.45 X10^3/ul (4.0); Lymphocyte % 5.8 % (19-41); Mean Corp Hgb Conc 33.5 g/dL (32-36); Mean Corpuscular Hgb 30.2 pg (27.0-32.0); Mean Corpuscular Volume 90.2 fL (81-99); Mean Platelet Vol. 9.5 fl (6.2-12.0); Monocyte# 1.12 X10^3/uL; Monocyte% 4.4 % (0-10); NRBC Flagged by Analyzer 0 % (0-5); Neutrophil # 22.37 X10^3/uL (2.7-7.7); Neutrophil % 88.8 % (47-70); POSITIVE DIFFERENTIAL YES; Platelet Count 266 K/mm3 (150-450); RBC Distribution Width CV 13.6 % (11.6-14.6); RBC Distribution Width SD 44.6 fl (35.1-43.9); Red Blood Count 2.95 M/mm3 (4.2-5.4); White Blood Count 25.2 K/mm3 (4.4-11.0)
[2020-06-10 15:01] LABS: Differential Indicated SCAN CRITERIA MET
[2020-06-10 15:59] LABS: Platelet Estimate ADEQUATE (ADEQ); Red Cell Morphology NORM C+C NORMAL (NORM C&C)
--- NOTE | 2020-06-10 17:19 | OP.PCM_ITS ---
Problem List (1) Post-dates Status: Acute (2) Depression Status: Chronic Qualifiers: Comment: sees one eighty, counseling no meds (3) Hepatitis C Status: Acute Qualifiers: Comment: treated 2014. check RNA level and CMP q trimester. 05/22 hep c rna normal (4) History of drug dependence Status: Chronic Comment: in recovery since april 2018, heroin/meth/fentanyl. random tox screens.(03/27 neg) (5) Pelvic fracture Status: Acute Comment: not involving canal (6) Status: Acute Qualifiers: Comment: NIPT low risk. 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 FOB negative testing. declined ntd screen. Anatomy normal (7) Supervision of high risk , antepartum Status: Acute Comment: PRR ANKUR 06/02/20 Girl ?Ingrid Cardoso (ortiz) (8) Tobacco use affecting , antepartum Status: Acute Comment: encouraged cessation, nicotine patch PRN (9) CPD (cephalo-pelvic disproportion) Status: Acute (10) hemorrhage Status: Acute (11) Cervical laceration Status: Acute Report of Operation Date of Procedure: 06/10/20 Pre-Operative Diagnosis: hemorrhage with vaginal bleeding from cervical extension Post-Operative Diagnosis: same Surgery/Procedure Performed:: exploratory laparotomy with repair of cervical extension Description of Surgical Findings:: no intraabdominal bleeding, right cervical extension bleeding into vagina and extravasating into right broad ligament merchandise complaint adjuster: Kim Rodriges merchandise complaint adjuster: Sydnie Lynne Type of Anesthesia:: General Special Medications: floseal and socrates, methergine, hemabate, tranexamic acid, pitocin Specimen's removed: none Drains: champion Estimated Blood Loss (mL): 2500 Fluids Replaced: crystalloid Description of Procedure: patient evaluated for vaginal bleeding, over 1000cc evacuated from the vagina and methergine, hemabate, pitocin, and tranexamic acid given, bakri balloon placed, and patient began vomiting and bakri balloon expelled. additional bleeding was seen and vaginal exam palpated a cervical extension intravaginally and therefore decision was made to proceed with immediate laparotomy. patient underwent general anesthesia and patient was prepped with chlorhexidine and Betadine splash and previous Pfannenstiel's incision was opened by cutting all sutures and entering into the abdomen the uterus was exteriorized and right lower uterine segment was inspected and noted to have blood extravasating out into the right broad ligament. No visible bleeding was seen intra-abdominally but upon opening up the right lower uterine incision the cervical extension was identified and evacuated of over 200 cc of clot in the base of the extension was identified and sutured with 0 Monocryl as well as suturing over the previous uterine incision with good hemostasis. Bladder was backfilled with methylene blue tented with sterile water and no leaks were noted. Ureters were noted to be inferior lateral to the operative field. An additional Jose stitch was placed over the right side to oversew the area of the extravasation of blood into the broad ligament. FloSeal was placed over the back right area of the broad ligament and Socrates placed over the incision. Again excellent hemostasis was noted after the uterus was returned to maternal abdomen. Peritoneum closed fascia closed with oh strata fix subcutaneous tissue copiously irrigated and reapproximated with 3-0 Monocryl and skin closed with 3-0 Monocryl. Silver Mepilex and Steri-Strips were applied patient was awoken and taken recovery in stable condition she had been transfused 1 unit of packed red blood cells intraoperatively and was noted to have a 9.6 hemoglobin intraoperatively had some hypotension and normal to elevated heart rate which resolved with blood products and IV fluids. Grafts/Implants Used: none - Complications hemorrhage - Admit VTE Documentation VTE Present on Admission: No VTE Mechan Device Prophylaxis: SCD's VTE Pharm Prophylaxis ordered?: No Multi Select Codes - Urinary/Genital Urinary/Genital CPT Codes: Other Procedure See Report - exploratory laparotomy [id number]???
--- NOTE | 2020-06-10 17:39 | PN.OBGYN_ITS ---
Patient Problems: Active and Suspected Problems (Last Reviewed 06/05/20 @ 11:02 by Rachna Donahue) Post-dates (Acute) CPD (cephalo-pelvic disproportion) (Acute) hemorrhage (Acute) Cervical laceration (Acute) Subjective: patient seen at 12:45 pm- repeat cbc and bmp, coags ordered. bleeding stable. patient nauseated and some pain but doing well overall. - Physical Exam Vitals/I&O's: Vital Signs Temp Pulse Resp BP Pulse Ox 98.5 F 99 15 103/52 L 99 06/10/20 17:30 06/10/20 17:30 06/10/20 17:30 06/10/20 17:30 06/10/20 17:30 Oxygen Delivery Method Room Air Weight: 254 lb Body Mass Index (BMI) 37.5 Finger Stick Blood Glucose 309 Intake and Output for Last 24 Hours 06/08/20 06/09/20 06/10/20 23:59 23:59 23:59 Intake Total 5115.10 / 5115.10 4124.56 / 4124.56 Output Total 1999 / 1999 1000 / 1000 Balance 3115.10 / 3115.10 3124.56 / 3124.56 General: Alert, Oriented x3 HEENT: Atraumatic, Normocephalic Lungs: Normal air movement Cardiovascular: Regular rate Abdomen: Soft, Non-Distended Laboratory Results 06/09/20 07:40: Crossmatch See Detail 06/10/20 07:44: WBC 26.4 H, RBC 3.20 L, Hgb 9.5 L, Hct 29.1 L, MCV 90.9, MCH 29.7, MCHC 32.6, RDW Std Deviation 44.1 H, RDW Coeff of Lorena 13.4, Plt Count 295, MPV 9.9, Immature Gran % (Auto) 0.600, Neut % (Auto) 90.7 H, Lymph % (Auto) 3.7 L, Stephenson % (Auto) 4.5, Eos % (Auto) 0.3, Baso % (Auto) 0.2, Absolute Neuts (auto) 23.9 H, Absolute Lymphs (auto) 0.97, Nucleated RBC % 0, Differential Comment SCANNED 06/10/20 08:00: PT 14.5, INR 1.2, APTT 28.4, Fibrinogen 363 06/10/20 13:35: WBC Cancelled, Corrected WBC Cancelled, RBC Cancelled, Hgb Cancelled, Hct Cancelled, MCV Cancelled, MCH Cancelled, MCHC Cancelled, RDW Std Deviation Cancelled, RDW Coeff of Lorena Cancelled, Plt Count Cancelled, MPV Cancelled, Immature Gran % (Auto) Cancelled, Neut % (Auto) Cancelled, Lymph % (Auto) Cancelled, Stephenson % (Auto) Cancelled, Eos % (Auto) Cancelled, Baso % (Auto) Cancelled, Absolute Neuts (auto) Cancelled, Absolute Lymphs (auto) Cancelled, Total Counted Cancelled, Neutrophils % (Manual) Cancelled, Band Neutrophils % Cancelled, Lymphocytes % (Manual) Cancelled, Monocytes % (Manual) Cancelled, Eosinophils % (Manual) Cancelled, Basophils % (Manual) Cancelled, Metamyelocytes % Cancelled, Myelocytes % Cancelled, Promyelocytes % Cancelled, Blast Cells % Cancelled, Plasma Cell % (Manual) Cancelled, Other Cells % Cancelled, Nucleated RBC % Cancelled, Nucleated RBCs/100 WBC Cancelled, Differential Comment Cancelled, Diff Path Review Cancelled, Hypersegmented Neuts Cancelled, Atypical Lymphocytes Cancelled, Reactive Lymphocytes Cancelled, Smudge Cells Cancelled, Toxic Granulation Cancelled, Toxic Vacuolation Cancelled, Dohle Bodies Cancelled, Keira Rods Cancelled, Platelet Estimate Cancelled, Plt Morphology Comment Cancelled, RBC Morphology Cancelled, Polychromasia Cancelled, Hypochromasia Cancelled, Poikilocytosis Cancelled, Basophilic Stippling Cancelled, Anisocytosis Cancelled, Microcytosis Cancelled, Macrocytosis Cancelled, Spherocytes Cancelled, Sickle Cells Cancelled, Target Cells Cancelled, Tear Drop Cells Cancelled, Ovalocytes Cancelled, Stomatocytes Cancelled, Flor-Winton Bodies Cancelled, Mariana Cells Cancelled, Bite Cells Cancelled, Crenated Cell Cancelled, Acanthocytes (Spur) Cancelled, Rouleaux Cancelled, Schistocytes Cancelled 06/10/20 13:35: PT 13.3, INR 1.1, APTT 21.6 L, Fibrinogen 316 06/10/20 13:35: Sodium 137, Potassium 4.3, Chloride 107, Carbon Dioxide 24.0, Anion Gap 6, BUN 12, Creatinine 0.84, Estim Creat Clear Calc 104.20, Est GFR (MDRD) Af Amer 104, Est GFR (MDRD) Non-Af 86, BUN/Creatinine Ratio 14.3, Glucose 111 H, Calcium 7.3 L, Total Bilirubin 0.90, AST 18, ALT 17, Alkaline Phosphatase 107, Total Protein 4.4 L, Albumin 1.5 L, Globulin 2.9, Albumin/Globulin Ratio 0.5 L 06/10/20 14:48: WBC 25.2 H, RBC 2.95 L, Hgb 8.9 L, Hct 26.6 L, MCV 90.2, MCH 30.2, MCHC 33.5, RDW Std Deviation 44.6 H, RDW Coeff of Lorena 13.6, Plt Count 266, MPV 9.5, Immature Gran % (Auto) 0.800, Neut % (Auto) 88.8 H, Lymph % (Auto) 5.8 L, Stephenson % (Auto) 4.4, Eos % (Auto) 0.0, Baso % (Auto) 0.2, Absolute Neuts (auto) 22.4 H, Absolute Lymphs (auto) 1.45, Nucleated RBC % 0, Differential Comment , Platelet Estimate ADEQUATE, RBC Morphology NORM C+C Current Medications Acetaminophen (Tylenol) 325 - 650 mg PO Q4H PRN PRN PRN Reason: Pain Score 1-3/10 Acetaminophen (Tylenol) 1,000 mg PO Q6 CRISS Last Admin: 06/10/20 14:14 Dose: 1,000 mg Documented by: Al Hydroxide/Mg Hydroxide (Mylanta Ii) 15 - 30 ml PO Q4H PRN PRN PRN Reason: INDIGESTION Last Admin: 06/09/20 21:07 Dose: 30 ml Documented by: Bisacodyl (Dulcolax) 10 mg RECTAL UD PRN PRN Reason: If no BM Diphenhydramine HCl (Benadryl) 25 mg PO Q6H PRN PRN PRN Reason: ITCHING Stop: 06/11/20 07:04 Ephedrine Sulfate () 10 mg IV Q10M PRN PRN Reason: hypotension Ephedrine Sulfate () 10 mg IM Q30M PRN PRN Reason: hypotension Fentanyl Citrate (Sublimaze (100mcg Ampule)) 25 - 50 mcg IV Q2H PRN PRN PRN Reason: Pain Score 4-10/10 Fentanyl/Bupivacaine/Sodium Chlor () 0 ml EPIDURAL UD [facility]; Protocol Last Admin: 06/10/20 04:33 Dose: 100 ml Documented by: Hydrocortisone (Hytone) 1 applic TOPICAL TID PRN PRN; Protocol PRN Reason: Discomfort Hydromorphone HCl (Dilaudid Inj) 0.5 mg IV X1 ONE Stop: 06/10/20 17:34 Lactated Ringer's () 500 mls @ 999 mls/hr IV .Q31M PRN PRN Reason: Epidural Last Infusion: 06/09/20 14:00 Dose: Infused Documented by: Lactated Ringer's () 500 mls @ 999 mls/hr IV .Q31M PRN PRN Reason: Corrective Measures Last Infusion: 06/10/20 00:05 Dose: Infused Documented by: Lactated Ringer's () 1,000 mls @ 50 mls/hr IV .Q20H [facility] Last Infusion: 06/10/20 09:03 Dose: Infused Documented by: Lactated Ringer's () 1,000 mls @ 100 mls/hr IV .Q10H [facility] Last Admin: 06/10/20 14:15 Dose: 100 mls/hr Documented by: Cefazolin Sodium () 1 gm in 50 mls @ 150 mls/hr IV Q8 [facility] Stop: 06/10/20 22:19 Last Infusion: 06/10/20 14:41 Dose: Infused Documented by: Naloxone HCl 4 mg/ Dextrose 504 mls @ 0 mls/hr IV .Q0M PRN; Protocol PRN Reason: To maintain Resp. rate >10 Ketorolac Tromethamine (Toradol (Bkc)) 30 mg IV Q6 [facility] Stop: 06/11/20 06:01 Last Admin: 06/10/20 14:15 Dose: 30 mg Documented by: Methylergonovine Maleate (Methergine) 0.2 mg IM X1 PRN PRN Reason: Uterine Atony Nalbuphine HCl (Nubain) 5 mg IV Q3H PRN PRN PRN Reason: ITCHING Stop: 06/11/20 07:04 Naloxone HCl (Narcan) 0.02 mg IV Q1M PRN PRN Reason: RR <10 and pt unresponsive Naproxen (Naprosyn) 500 mg PO Q8 CRISS Last Admin: 06/10/20 14:16 Dose: Not Given Documented by: Ondansetron HCl (Zofran) 4 mg IV Q4H PRN PRN PRN Reason: Nausea Oxycodone HCl (Oxyir) 5 - 10 mg PO Q4H PRN PRN PRN Reason: Pain Score 4-10/10 Prochlorperazine Edisylate (Compazine Iv) 10 mg IV Q6H PRN PRN PRN Reason: NAUSEA Senna/Docusate Sodium (Senokot-S, Mabel-Colace) 0 tablet PO DAILY CRISS Simethicone (Mylicon) 80 mg PO PCHS PRN PRN Reason: Indigestion/stomach pain Sodium Chloride () 5 - 15 ml IV UD PRN PRN Reason: SALINE FLUSH Medical Necessity - Tobacco Use Smoking Status: Current some day smoker Assessment/Plan All Active Problems (Last Reviewed 06/05/20 @ 11:02 by Rachna Donahue) Post-dates (Acute) CPD (cephalo-pelvic disproportion) (Acute) hemorrhage (Acute) Cervical laceration (Acute) Pelvic fracture (Acute) Hepatitis C (Acute) (Acute) Supervision of high risk , antepartum (Acute) Tobacco use affecting , antepartum (Acute) Acute respiratory failure (Resolved) Aspiration pneumonia (Resolved) Overdose of heroin (Resolved) Severe sepsis (Resolved) 29 yo s/p LTCS for CPD and XLAP for PPH with cervical extension POD0 1. anemia secondary to acute blood loss from PPH- s/p repeat surgery now stable, 1 u PRBC transfused with additional units on hold. repeat labs ordered. 2. breast feeding- support given 3. rh positive 4. rubella immune
--- NOTE | 2020-06-10 17:42 | PN.OBGYN_ITS ---
Patient Problems: Active and Suspected Problems (Last Reviewed 06/05/20 @ 11:02 by Rachna Donahue) Post-dates (Acute) CPD (cephalo-pelvic disproportion) (Acute) hemorrhage (Acute) Cervical laceration (Acute) Subjective: patient seen now and doing better, pain control with limited movement no CP SOB NV limited appetite, bleeding minimal. no tachycardia still some hypotension but stable, improve urine output - Physical Exam Vitals/I&O's: Vital Signs Temp Pulse Resp BP Pulse Ox 98.5 F 99 15 103/52 L 99 06/10/20 17:30 06/10/20 17:30 06/10/20 17:30 06/10/20 17:30 06/10/20 17:30 Oxygen Delivery Method Room Air Weight: 254 lb Body Mass Index (BMI) 37.5 Finger Stick Blood Glucose 309 Intake and Output for Last 24 Hours 06/08/20 06/09/20 06/10/20 23:59 23:59 23:59 Intake Total 5115.10 / 5115.10 4124.56 / 4124.56 Output Total 1999 / 1999 1000 / 1000 Balance 3115.10 / 3115.10 3124.56 / 3124.56 Laboratory Results 06/09/20 07:40: Crossmatch See Detail 06/10/20 07:44: WBC 26.4 H, RBC 3.20 L, Hgb 9.5 L, Hct 29.1 L, MCV 90.9, MCH 29.7, MCHC 32.6, RDW Std Deviation 44.1 H, RDW Coeff of Lorena 13.4, Plt Count 295, MPV 9.9, Immature Gran % (Auto) 0.600, Neut % (Auto) 90.7 H, Lymph % (Auto) 3.7 L, [place] % (Auto) 4.5, Eos % (Auto) 0.3, Baso % (Auto) 0.2, Absolute Neuts (auto) 23.9 H, Absolute Lymphs (auto) 0.97, Nucleated RBC % 0, Differential Comment SCANNED 06/10/20 08:00: PT 14.5, INR 1.2, APTT 28.4, Fibrinogen 363 06/10/20 13:35: WBC Cancelled, Corrected WBC Cancelled, RBC Cancelled, Hgb Cancelled, Hct Cancelled, MCV Cancelled, MCH Cancelled, MCHC Cancelled, RDW Std Deviation Cancelled, RDW Coeff of Lorena Cancelled, Plt Count Cancelled, MPV Cancelled, Immature Gran % (Auto) Cancelled, Neut % (Auto) Cancelled, Lymph % (Auto) Cancelled, [place] % (Auto) Cancelled, Eos % (Auto) Cancelled, Baso % (Auto) Cancelled, Absolute Neuts (auto) Cancelled, Absolute Lymphs (auto) Cancelled, Total Counted Cancelled, Neutrophils % (Manual) Cancelled, Band Neutrophils % Cancelled, Lymphocytes % (Manual) Cancelled, Monocytes % (Manual) Cancelled, Eosinophils % (Manual) Cancelled, Basophils % (Manual) Cancelled, Metamyelocytes % Cancelled, Myelocytes % Cancelled, Promyelocytes % Cancelled, Blast Cells % Cancelled, Plasma Cell % (Manual) Cancelled, Other Cells % Cancelled, Nucleated RBC % Cancelled, Nucleated RBCs/100 WBC Cancelled, Differential Comment Cancelled, Diff Path Review Cancelled, Hypersegmented Neuts Cancelled, Atypical Lymphocytes Cancelled, Reactive Lymphocytes Cancelled, Smudge Cells Cancelled, Toxic Granulation Cancelled, Toxic Vacuolation Cancelled, Dohle Bodies Cancelled, Keira Rods Cancelled, Platelet Estimate Cancelled, Plt Morphology Comment Cancelled, RBC Morphology Cancelled, Polychromasia Cancelled, Hypoch romasia Cancelled, Poikilocytosis Cancelled, Basophilic Stippling Cancelled, Anisocytosis Cancelled, Microcytosis Cancelled, Macrocytosis Cancelled, Spherocytes Cancelled, Sickle Cells Cancelled, Target Cells Cancelled, Tear Drop Cells Cancelled, Ovalocytes Cancelled, Stomatocytes Cancelled, [place] Bodies Cancelled, [place] Cells Cancelled, Bite Cells Cancelled, Crenated Cell Cancelled, Acanthocytes (Spur) Cancelled, Rouleaux Cancelled, Schistocytes Cancelled 06/10/20 13:35: PT 13.3, INR 1.1, APTT 21.6 L, Fibrinogen 316 06/10/20 13:35: Sodium 137, Potassium 4.3, Chloride 107, Carbon Dioxide 24.0, Anion Gap 6, BUN 12, Creatinine 0.84, Estim Creat Clear Calc 104.20, Est GFR (MDRD) Af Amer 104, Est GFR (MDRD) Non-Af 86, BUN/Creatinine Ratio 14.3, Glucose 111 H, Calcium 7.3 L, Total Bilirubin 0.90, AST 18, ALT 17, Alkaline Phosphatase 107, Total Protein 4.4 L, Albumin 1.5 L, Globulin 2.9, Albumin/Globulin Ratio 0.5 L 06/10/20 14:48: WBC 25.2 H, RBC 2.95 L, Hgb 8.9 L, Hct 26.6 L, MCV 90.2, MCH 30.2, MCHC 33.5, RDW Std Deviation 44.6 H, RDW Coeff of Lorena 13.6, Plt Count 266, MPV 9.5, Immature Gran % (Auto) 0.800, Neut % (Auto) 88.8 H, Lymph % (Auto) 5.8 L, [place] % (Auto) 4.4, Eos % (Auto) 0.0, Baso % (Auto) 0.2, Absolute Neuts (auto) 22.4 H, Absolute Lymphs (auto) 1.45, Nucleated RBC % 0, Differential Comment , Platelet Estimate ADEQUATE, RBC Morphology NORM C+C Current Medications Acetaminophen (Tylenol) 325 - 650 mg PO Q4H PRN PRN PRN Reason: Pain Score 1-3/10 Acetaminophen (Tylenol) 1,000 mg PO Q6 [facility] Last Admin: 06/10/20 14:14 Dose: 1,000 mg Documented by: Al Hydroxide/Mg Hydroxide (Mylanta Ii) 15 - 30 ml PO Q4H PRN PRN PRN Reason: INDIGESTION Last Admin: 06/09/20 21:07 Dose: 30 ml Documented by: Bisacodyl (Dulcolax) 10 mg RECTAL UD PRN PRN Reason: If no BM Diphenhydramine HCl (Benadryl) 25 mg PO Q6H PRN PRN PRN Reason: ITCHING Stop: 06/11/20 07:04 Ephedrine Sulfate () 10 mg IV Q10M PRN PRN Reason: hypotension Ephedrine Sulfate () 10 mg IM Q30M PRN PRN Reason: hypotension Fentanyl Citrate (Sublimaze (100mcg Ampule)) 25 - 50 mcg IV Q2H PRN PRN PRN Reason: Pain Score 4-10/10 Fentanyl/Bupivacaine/Sodium Chlor () 0 ml EPIDURAL UD [facility]; Protocol Last Admin: 06/10/20 04:33 Dose: 100 ml Documented by: Hydrocortisone (Hytone) 1 applic TOPICAL TID PRN PRN; Protocol PRN Reason: Discomfort Hydromorphone HCl (Dilaudid Inj) 0.5 mg IV X1 ONE Stop: 06/10/20 17:34 Lactated Ringer's () 500 mls @ 999 mls/hr IV .Q31M PRN PRN Reason: Epidural Last Infusion: 06/09/20 14:00 Dose: Infused Documented by: Lactated Ringer's () 500 mls @ 999 mls/hr IV .Q31M PRN PRN Reason: Corrective Measures Last Infusion: 06/10/20 00:05 Dose: Infused Documented by: Lactated Ringer's () 1,000 mls @ 50 mls/hr IV .Q20H [facility] Last Infusion: 06/10/20 09:03 Dose: Infused Documented by: Lactated Ringer's () 1,000 mls @ 100 mls/hr IV .Q10H [facility] Last Admin: 06/10/20 14:15 Dose: 100 mls/hr Documented by: Cefazolin Sodium () 1 gm in 50 mls @ 150 mls/hr IV Q8 [facility] Stop: 06/10/20 22:19 Last Infusion: 06/10/20 14:41 Dose: Infused Documented by: Naloxone HCl 4 mg/ Dextrose 504 mls @ 0 mls/hr IV .Q0M PRN; Protocol PRN Reason: To maintain Resp. rate >10 Ketorolac Tromethamine (Toradol (Bkc)) 30 mg IV Q6 [facility] Stop: 06/11/20 06:01 Last Admin: 06/10/20 14:15 Dose: 30 mg Documented by: Methylergonovine Maleate (Methergine) 0.2 mg IM X1 PRN PRN Reason: Uterine Atony Nalbuphine HCl (Nubain) 5 mg IV Q3H PRN PRN PRN Reason: ITCHING Stop: 06/11/20 07:04 Naloxone HCl (Narcan) 0.02 mg IV Q1M PRN PRN Reason: RR <10 and pt unresponsive Naproxen (Naprosyn) 500 mg PO Q8 [facility] Last Admin: 06/10/20 14:16 Dose: Not Given Documented by: Ondansetron HCl (Zofran) 4 mg IV Q4H PRN PRN PRN Reason: Nausea Oxycodone HCl (Oxyir) 5 - 10 mg PO Q4H PRN PRN PRN Reason: Pain Score 4-10/10 Prochlorperazine Edisylate (Compazine Iv) 10 mg IV Q6H PRN PRN PRN Reason: NAUSEA Senna/Docusate Sodium (Senokot-S, Mabel-Colace) 0 tablet PO DAILY [facility] Simethicone (Mylicon) 80 mg PO PCHS PRN PRN Reason: Indigestion/stomach pain Sodium Chloride () 5 - 15 ml IV UD PRN PRN Reason: SALINE FLUSH Medical Necessity - Tobacco Use Smoking Status: Current some day smoker Assessment/Plan All Active Problems (Last Reviewed 06/05/20 @ 11:02 by Rachna Donahue) Post-dates (Acute) CPD (cephalo-pelvic disproportion) (Acute) hemorrhage (Acute) Cervical laceration (Acute) Pelvic fracture (Acute) Hepatitis C (Acute) (Acute) Supervision of high risk , antepartum (Acute) Tobacco use affecting , antepartum (Acute) Acute respiratory failure (Resolved) Aspiration pneumonia (Resolved) Overdose of heroin (Resolved) Severe sepsis (Resolved) 29 yo s/p LTCS for CPD and XLAP for PPH with cervical extension POD#0 1. anemia secondary to acute blood loss from PPH- s/p repeat surgery now stable, 1 u PRBC transfused with additional units on hold. repeat labs stabilizing, continue to follow 2. leukocytosis- serum lactate sent, 24 hours antibiotics ordered 3. breast feeding- support given 4. rh positive 5. rubella immune 6. dvt prophylaxis- lovenox to start 12 hours
[2020-06-10] MEDS: HYDROmorphone 0.5 MG/0.5 ML SYRINGE IV ×2 (17:57→23:40)
[2020-06-10 18:55] LABS: Lactic Acid 2.1 mmol/L (0.4-1.9)
--- NOTE | 2020-06-10 19:19 | PCM.PN.BLA ---
Progress Note Called and discussed with nursing elevated lactate level and leukocytosis. Patient is afebrile but still hypotensive with low urine output. Recommend aggressive fluid resuscitation with 3 L being given wide open and will repeat a lactate in 1 hour. If still significantly elevated recommend expanding sepsis work-up and altering IV antibiotics. Patient appears clinically stable and is comfortable at this time. STROKE Vital Signs/Narrative: Vital Signs Temp Pulse Resp BP Pulse Ox 06/10/20 18:30 85 14 100 06/10/20 17:30 98.5 F 99 15 103/52 L 99 06/10/20 16:30 84 14 100 06/10/20 15:30 98.5 F 88 16 88/46 L 99
[2020-06-10] MEDS: 0.9% Normal Saline 1,000 ML 999 ML IV ×3 (19:47→20:49)
--- NOTE | 2020-06-10 20:15 | NURSING ---
pt has indwelling urinary catheter as pt day 0 post op
[2020-06-10] MEDS: Enoxaparin 40 MG/0.4 ML Syringe SC (20:55)
[2020-06-10] MEDS: 0.9% Normal Saline 1,000 ML 150 ML IV (22:20)
[2020-06-10 22:24] LABS: Reflex Lactate? Y
--- NOTE | 2020-06-10 22:52 | NURSING ---
RN assisted pt with standing up at bedside starting at 2205. Pt dangled on side of bed for five minutes before standing at side of bed for 10 minutes with short walk to bathroom door and back to bed where pt dangled for five minutes before sitting back in bed. Pt tolerated well, reported some dizziness. Declines pain medication at this time.
[2020-06-11] VITALS (12 sets, daily range): BP systolic 88–123; BP diastolic 43–70; PULSE 96–113; RESP 16–18; TEMP 36.2–37.2; O2SAT 94–99
[2020-06-11 00:21] LABS: Lactic Acid 2.1 mmol/L (0.4-1.9)
[2020-06-11] MEDS: Acetaminophen 500 MG Tablet 1000 MG PO ×4 (01:12→20:55)
[2020-06-11] MEDS: Ketorolac 30 MG/ML Syringe IV ×2 (01:12→07:51)
[2020-06-11 04:47] LABS: Hematocrit 19.6 % (37-47); Hemoglobin 6.4 g/dL (12.0-15.0); Mean Corp Hgb Conc 32.7 g/dL (32-36); Mean Corpuscular Hgb 30.2 pg (27.0-32.0); Mean Corpuscular Volume 92.5 fL (81-99); Mean Platelet Vol. 9.7 fl (6.2-12.0); Platelet Count 187 K/mm3 (150-450); RBC Distribution Width CV 13.8 % (11.6-14.6); RBC Distribution Width SD 46.5 fl (35.1-43.9); Red Blood Count 2.12 M/mm3 (4.2-5.4); White Blood Count 14.8 K/mm3 (4.4-11.0)
[2020-06-11 05:03] LABS: Anion Gap 6 (5-15); BUN 13 mg/dL (7-18); BUN/Creat Ratio 18.8 RATIO (10-20); Calcium,Total 6.9 mg/dL (8.5-10.1); Chloride 113 mmol/L (98-107); Creatinine, Serum 0.69 mg/dL (0.55-1.02); EST Glomerular Filtration Rate 107 mL/min (>60); Est Glom Filt Rate - Afr Amer 129 mL/min (>60); Estimated Creatinine Clearance 126.86 ml/min; Glucose 102 mg/dL (74-106); Potassium 4.1 mmol/L (3.5-5.1); Sodium Level 141 mmol/L (136-145)
[2020-06-11 05:16] LABS: Lactic Acid 1.3 mmol/L (0.4-1.9)
[2020-06-11] MEDS: 0.9% Saline Lock 10 ML Syringe IV (05:43)
[2020-06-11] MEDS: 0.9% Normal Saline 1,000 ML 150 ML IV (06:53)
[2020-06-11] MEDS: Senna/Docusate Sodium 1 Tablet PO (07:52)
--- NOTE | 2020-06-11 10:06 | PN.OBGYN_ITS ---
Patient Problems: Active and Suspected Problems (Last Reviewed 06/05/20 @ 11:02 by Rachna Donahue) Post-dates (Acute) CPD (cephalo-pelvic disproportion) (Acute) hemorrhage (Acute) Cervical laceration (Acute) Subjective: Patient sleeping upon initial evaluation so condition discussed with nursing, patient is tolerating p.o. and able to ambulate with good urine output clear. Weaning off of O2 with improved oxygen saturation. Second unit of blood transfusing this morning for a total of 3 units. No chest pain shortness of breath per nursing - Physical Exam Vitals/I&O's: Vital Signs Temp Pulse Resp BP Pulse Ox 97.2 F L 105 H 18 92/50 L 95 06/11/20 09:37 06/11/20 09:37 06/11/20 09:37 06/11/20 09:37 06/11/20 09:37 Oxygen Flow Rate (L/min) 2 Oxygen Delivery Method Room Air Weight: 254 lb Body Mass Index (BMI) 37.5 Finger Stick Blood Glucose 309 Intake and Output for Last 24 Hours 06/09/20 06/10/20 06/11/20 23:59 23:59 23:59 Intake Total 5115.10 / 5115.10 6744.54 / 6744.54 1900 / 1900 Output Total 1999 1250 / 1250 2800 / 2800 Balance 3115.10 / 3115.10 5494.54 / 5494.54 -900 / -900 General: Alert Laboratory Results 06/09/20 07:04: Crossmatch See Detail 06/09/20 07:40: Crossmatch See Detail 06/10/20 13:35: WBC Cancelled, Corrected WBC Cancelled, RBC Cancelled, Hgb Cancelled, Hct Cancelled, MCV Cancelled, MCH Cancelled, MCHC Cancelled, RDW Std Deviation Cancelled, RDW Coeff of Lorena Cancelled, Plt Count Cancelled, MPV Cancelled, Immature Gran % (Auto) Cancelled, Neut % (Auto) Cancelled, Lymph % (Auto) Cancelled, [place] % (Auto) Cancelled, Eos % (Auto) Cancelled, Baso % (Auto) Cancelled, Absolute Neuts (auto) Cancelled, Absolute Lymphs (auto) Cancelled, Total Counted Cancelled, Neutrophils % (Manual) Cancelled, Band Neutrophils % Cancelled, Lymphocytes % (Manual) Cancelled, Monocytes % (Manual) Cancelled, Eosinophils % (Manual) Cancelled, Basophils % (Manual) Cancelled, Metamyelocytes % Cancelled, Myelocytes % Cancelled, Promyelocytes % Cancelled, Blast Cells % Cancelled, Plasma Cell % (Manual) Cancelled, Other Cells % Cancelled, Nucleated RBC % Cancelled, Nucleated RBCs/100 WBC Cancelled, Differential Comment Cancelled, Diff Path Review Cancelled, Hypersegmented Neuts Cancelled, Atypical Lymphocytes Cancelled, Reactive Lymphocytes Cancelled, Smudge Cells Cancelled, Toxic Granulation Cancelled, Toxic Vacuolation Cancelled, Dohle Bodies Cancelled, Keira Rods Cancelled, Platelet Estimate Cancelled, Plt Morphology Comment Cancelled, RBC Morphology Cancelled, Polychromasia Cancelled, Hypochromasia Cancelled, Poikilocytosis Cancelled, Basophilic Stippling Cancelled, Anisocytosis Cancelled, Microcytosis Cancelled, Macrocytosis Cancelled, Spherocytes Cancelled, Sickle Cells Cancelled, Target Cells Cancelled, Tear Drop Cells Cancelled, Ovalocytes Cancelled, Stomatocytes Cancelled, [place] Bodies Cancelled, [place] Cells Cancelled, Bite Cells Cancelled, Crenated Cell Cancelled, Acanthocytes (Spur) Cancelled, Rouleaux Cancelled, Schistocytes Cancelled 06/10/20 13:35: PT 13.3, INR 1.1, APTT 21.6 L, Fibrinogen 316 06/10/20 13:35: Sodium 137, Potassium 4.3, Chloride 107, Carbon Dioxide 24.0, Anion Gap 6, BUN 12, Creatinine 0.84, Estim Creat Clear Calc 104.20, Est GFR (MDRD) Af Amer 104, Est GFR (MDRD) Non-Af 86, BUN/Creatinine Ratio 14.3, Glucose 111 H, Calcium 7.3 L, Total Bilirubin 0.90, AST 18, ALT 17, Alkaline Phosphatase 107, Total Protein 4.4 L, Albumin 1.5 L, Globulin 2.9, Albumin/Globulin Ratio 0.5 L 06/10/20 14:48: WBC 25.2 H, RBC 2.95 L, Hgb 8.9 L, Hct 26.6 L, MCV 90.2, MCH 30.2, MCHC 33.5, RDW Std Deviation 44.6 H, RDW Coeff of Lorena 13.6, Plt Count 266, MPV 9.5, Immature Gran % (Auto) 0.800, Neut % (Auto) 88.8 H, Lymph % (Auto) 5.8 L, [place] % (Auto) 4.4, Eos % (Auto) 0.0, Baso % (Auto) 0.2, Absolute Neuts (auto) 22.4 H, Absolute Lymphs (auto) 1.45, Nucleated RBC % 0, Differential Comment , Platelet Estimate ADEQUATE, RBC Morphology NORM C+C 06/10/20 18:18: Lactic Acid 2.1 H* 06/10/20 23:18: Lactic Acid 2.1 H* 06/11/20 04:36: WBC 14.8 H, RBC 2.12 L, Hgb 6.4 L, Hct 19.6 L, MCV 92.5, MCH 30.2, MCHC 32.7, RDW Std Deviation 46.5 H, RDW Coeff of [place]ore[place] 13.8, Plt Count 187, MPV 9.7 06/11/20 04:36: Sodium 141, Potassium 4.1, Chloride 113 H, Carbon Dioxide 22.0, Anion Gap 6, BUN 13, Creatinine 0.69, Estim Creat Clear Calc 126.86, Est GFR (MDRD) Af Amer 129, Est GFR (MDRD) Non-Af 107, BUN/Creatinine Ratio 18.8, Glucose 102, Calcium 6.9 L 06/11/20 04:36: Lactic Acid 1.3 Current Medications Acetaminophen (Tylenol) 325 - 650 mg PO Q4H PRN PRN PRN Reason: Pain Score 1-3/10 Acetaminophen (Tylenol) 1,000 mg PO Q6H [facility] Last Admin: 06/11/20 07:52 Dose: 1,000 mg Documented by: Al Hydroxide/Mg Hydroxide (Mylanta Ii) 15 - 30 ml PO Q4H PRN PRN PRN Reason: INDIGESTION Last Admin: 06/09/20 21:07 Dose: 30 ml Documented by: Bisacodyl (Dulcolax) 10 mg RECTAL UD PRN PRN Reason: If no BM Enoxaparin Sodium (Lovenox) 40 mg SC DAILY@2100 [facility] Last Admin: 08/03/20 20:55 Dose: 40 mg Documented by: Ephedrine Sulfate () 10 mg IV Q10M PRN PRN Reason: hypotension Ephedrine Sulfate () 10 mg IM Q30M PRN PRN Reason: hypotension Fentanyl Citrate (Sublimaze (100mcg Ampule)) 25 - 50 mcg IV Q2H PRN PRN PRN Reason: Pain Score 4-10/10 Fentanyl/Bupivacaine/Sodium Chlor () 0 ml EPIDURAL UD [facility]; Protocol Last Admin: 06/10/20 04:33 Dose: 100 ml Documented by: Hydrocortisone (Hytone) 1 applic TOPICAL TID PRN PRN; Protocol PRN Reason: Discomfort Lactated Ringer's () 500 mls @ 999 mls/hr IV .Q31M PRN PRN Reason: Epidural Last Infusion: 06/09/20 14:00 Dose: Infused Documented by: Lactated Ringer's () 500 mls @ 999 mls/hr IV .Q31M PRN PRN Reason: Corrective Measures Last Infusion: 06/10/20 00:05 Dose: Infused Documented by: Lactated Ringer's () 1,000 mls @ 50 mls/hr IV .Q20H [facility] Last Infusion: 06/10/20 09:03 Dose: Infused Documented by: Naloxone HCl 4 mg/ Dextrose 504 mls @ 0 mls/hr IV .Q0M PRN; Protocol PRN Reason: To maintain Resp. rate >10 Sodium Chloride () 1,000 mls @ 150 mls/hr IV .Q6H40M [facility] Last Admin: 06/11/20 06:53 Dose: 150 mls/hr Documented by: Methylergonovine Maleate (Methergine) 0.2 mg IM X1 PRN PRN Reason: Uterine Atony Naloxone HCl (Narcan) 0.02 mg IV Q1M PRN PRN Reason: RR <10 and pt unresponsive Naproxen (Naprosyn) 500 mg PO Q8 [facility] Last Admin: 06/11/20 07:43 Dose: Not Given Documented by: Ondansetron HCl (Zofran) 4 mg IV Q4H PRN PRN PRN Reason: Nausea Oxycodone HCl (Oxyir) 5 - 10 mg PO Q4H PRN PRN PRN Reason: Pain Score 4-10/10 Prochlorperazine Edisylate (Compazine Iv) 10 mg IV Q6H PRN PRN PRN Reason: NAUSEA Senna/Docusate Sodium (Senokot-S, Mabel-Colace) 0 tablet PO DAILY [facility] Last Admin: 06/11/20 07:52 Dose: 1 tablet Documented by: Simethicone (Mylicon) 80 mg PO PCHS PRN PRN Reason: Indigestion/stomach pain Sodium Chloride () 5 - 15 ml IV UD PRN PRN Reason: SALINE FLUSH Last Admin: 06/11/20 05:43 Dose: 10 ml Documented by: Medical Necessity - Tobacco Use Smoking Status: Current some day smoker Assessment/Plan All Active Problems (Last Reviewed 06/05/20 @ 11:02 by Rachna Donahue) Post-dates (Acute) CPD (cephalo-pelvic disproportion) (Acute) hemorrhage (Acute) Cervical laceration (Acute) Pelvic fracture (Acute) Hepatitis C (Acute) (Acute) Supervision of high risk , antepartum (Acute) Tobacco use affecting , antepartum (Acute) Acute respiratory failure (Resolved) Aspiration pneumonia (Resolved) Overdose of heroin (Resolved) Severe sepsis (Resolved) 29 yo s/p LTCS for CPD and XLAP for PPH with cervical extension POD#0 1. anemia secondary to acute blood loss from PPH- s/p repeat surgery now stable, 1 u PRBC transfused with additional units on hold. repeat labs stabilizing, continue to follow 2. leukocytosis- serum lactate sent, 24 hours antibiotics ordered 3. breast feeding- support given 4. rh positive 5. rubella immune 6. dvt prophylaxis- lovenox to start 12 hours
[2020-06-11] MEDS: oxyCODONE 5 MG Tablet PO ×3 (12:41→23:17)
--- NOTE | 2020-06-11 13:00 | NURSING ---
epidural cath. removed with tip intact
[2020-06-11] MEDS: Naproxen 250 MG Tablet 500 MG PO ×2 (14:02→22:10)
[2020-06-11 16:19] LABS: Absolute Lymphocyte Count 1.65 X10^3/uL (0.83-4.51); Absolute Neutrophil Count 14.4 X10^3/uL (2.0-7.7); Basophil# 0.02 X10^3/uL; Basophil% 0.1 % (0-1); Eosinophil# 0.07 X10^3/uL; Eosinophils% 0.4 % (0-5); Hematocrit 23.7 % (37-47); Hemoglobin 7.8 g/dL (12.0-15.0); Lymphocyte # 1.65 X10^3/ul (4.0); Lymphocyte % 9.6 % (19-41); Mean Corp Hgb Conc 32.9 g/dL (32-36); Mean Corpuscular Hgb 29.9 pg (27.0-32.0); Mean Corpuscular Volume 90.8 fL (81-99); Mean Platelet Vol. 9.6 fl (6.2-12.0); Monocyte# 0.83 X10^3/uL; Monocyte% 4.9 % (0-10); NRBC Flagged by Analyzer 0 % (0-5); Neutrophil # 14.35 X10^3/uL (2.7-7.7); Neutrophil % 83.9 % (47-70); Platelet Count 213 K/mm3 (150-450); RBC Distribution Width CV 14.5 % (11.6-14.6); RBC Distribution Width SD 47.6 fl (35.1-43.9); Red Blood Count 2.61 M/mm3 (4.2-5.4); White Blood Count 17.1 K/mm3 (4.4-11.0)
[2020-06-11] MEDS: Enoxaparin 40 MG/0.4 ML Syringe SC (20:56)
[2020-06-12] VITALS (9 sets, daily range): BP systolic 102–126; BP diastolic 63–76; PULSE 82–95; RESP 16–18; TEMP 36.4–37.1; O2SAT 96–98
[2020-06-12] MEDS: Acetaminophen 500 MG Tablet 1000 MG PO ×4 (02:34→20:56)
[2020-06-12] MEDS: oxyCODONE 5 MG Tablet PO ×3 (03:38→17:33)
[2020-06-12] MEDS: Naproxen 250 MG Tablet 500 MG PO ×3 (06:10→23:31)
[2020-06-12] MEDS: 0.9% Saline Lock 10 ML Syringe IV ×2 (06:16→08:15)
[2020-06-12 06:53] LABS: Hematocrit 20.8 % (37-47); Hemoglobin 6.7 g/dL (12.0-15.0); Mean Corp Hgb Conc 32.2 g/dL (32-36); Mean Corpuscular Hgb 29.6 pg (27.0-32.0); Mean Platelet Vol. 9.1 fl (6.2-12.0); Platelet Count 189 K/mm3 (150-450); RBC Distribution Width CV 14.7 % (11.6-14.6); RBC Distribution Width SD 49.2 fl (35.1-43.9); Red Blood Count 2.26 M/mm3 (4.2-5.4); White Blood Count 11.8 K/mm3 (4.4-11.0)
--- NOTE | 2020-06-12 07:30 | NURSING ---
called Dr. Baker and notified her of latest lab results this morning. ordered 1 more unit of blood and hgb 4 hours after end of blood.
--- NOTE | 2020-06-12 10:37 | NURSING ---
site leaking minimal amount. dressing changed. no other signs of infiltration, will continue to observe.
[2020-06-12] MEDS: Polyethylene Glycol 3350 17 GM PACKET PO (11:16)
[2020-06-12] MEDS: Senna/Docusate Sodium 1 Tablet PO (11:17)
--- NOTE | 2020-06-12 11:43 | NURSING ---
no further leaking noted
[2020-06-12 15:14] LABS: Mean Corp Hgb Conc 33.3 g/dL (32-36); Mean Corpuscular Hgb 30.2 pg (27.0-32.0); Mean Corpuscular Volume 90.6 fL (81-99); Mean Platelet Vol. 9.6 fl (6.2-12.0); Platelet Count 269 K/mm3 (150-450); RBC Distribution Width CV 14.6 % (11.6-14.6); RBC Distribution Width SD 48.5 fl (35.1-43.9); Red Blood Count 2.65 M/mm3 (4.2-5.4); White Blood Count 12.9 K/mm3 (4.4-11.0)
--- NOTE | 2020-06-12 15:34 | PN.OBGYN_ITS ---
Patient Problems: Active and Suspected Problems (Last Reviewed 06/05/20 @ 11:02 by Rachna Donahue) Post-dates (Acute) CPD (cephalo-pelvic disproportion) (Acute) hemorrhage (Acute) Cervical laceration (Acute) Subjective: Allie Orozco is a 29yo PPD#2 s/p PLTCS for arrest of descent and POD#2 from exploratory laparotomy for hemorrhage. Patient transfused 1 additional unit of blood this am as Hb was 6.8. Patient now reports feeling much better. Pain well controlled. Ambulating and voiding without difficulty. Not yet passing gas, but feels that she is about to pass gas after receiving miralax this afternoon. Was able to take a shower and has ambulated throughout her room. Denies nausea and vomiting. Bleeding is light. without difficulty. Denies lower extremity pain and swelling. - Physical Exam Vitals/I&O's: Vital Signs Temp Pulse Resp BP Pulse Ox 97.5 F L 87 18 121/71 H 98 06/12/20 15:01 06/12/20 15:01 06/12/20 15:01 06/12/20 15:01 06/12/20 15:01 Oxygen Flow Rate (L/min) 2 Oxygen Delivery Method Room Air Weight: 254 lb Body Mass Index (BMI) 37.5 Finger Stick Blood Glucose 309 Intake and Output for Last 24 Hours 06/10/20 06/11/20 06/12/20 23:59 23:59 23:59 Intake Total 6744.54 / 6744.54 3300 / 3300 400 / 400 Output Total 1250 / 1250 4700 / 4700 Balance 5494.54 / 5494.54 -1400 / -1400 400 / 400 General: Alert, Oriented x3, Cooperative, No apparent distress, Well developed, Well nourished HEENT: Atraumatic, PERRLA, EOMI, Normocephalic Oral: Moist Mucosa Neck: Supple, No JVD Lungs: Clear to auscultation, Normal air movement, No rhonchi, No wheeze, No rales Cardiovascular: Regular rate, Regular Rhythm, No murmurs Abdomen: Bowel Sounds Present, Soft, Non-Distended, - - incision c/d/i with dressing in place, appropriately TTP Extremities: No Calf Tenderness, - - trace pedal edema Psych/Mental Status: Alert and oriented to time, place, person, mood and affect Laboratory Results 06/09/20 07:40: Crossmatch See Detail 06/11/20 16:00: WBC 17.1 H, RBC 2.61 L, Hgb 7.8 L, Hct 23.7 L, MCV 90.8, MCH 29.9, MCHC 32.9, RDW Std Deviation 47.6 H, RDW Coeff of Lorena 14.5, Plt Count 213, MPV 9.6, Immature Gran % (Auto) 1.100 H, Neut % (Auto) 83.9 H, Lymph % (Auto) 9.6 L, [place] % (Auto) 4.9, Eos % (Auto) 0.4, Baso % (Auto) 0.1, Absolute Neuts (auto) 14.4 H, Absolute Lymphs (auto) 1.65, Nucleated RBC % 0 06/12/20 06:45: WBC 11.8 H, RBC 2.26 L, Hgb 6.7 L, Hct 20.8 L, MCV 92.0, MCH 29.6, MCHC 32.2, RDW Std Deviation 49.2 H, RDW Coeff of Lorena 14.7 H, Plt Count 189, MPV 9.1 06/12/20 15:00: WBC 12.9 H, RBC 2.65 L, Hgb 8.0 L, Hct 24.0 L, MCV 90.6, MCH 30.2, MCHC 33.3, RDW Std Deviation 48.5 H, RDW Coeff of Lorena 14.6, Plt Count 269, MPV 9.6 Current Medications Acetaminophen (Tylenol) 325 - 650 mg PO Q4H PRN PRN PRN Reason: Pain Score 1-3/10 Acetaminophen (Tylenol) 1,000 mg PO Q6H [facility] Last Admin: 06/12/20 14:51 Dose: 1,000 mg Documented by: Al Hydroxide/Mg Hydroxide (Mylanta Ii) 15 - 30 ml PO Q4H PRN PRN PRN Reason: INDIGESTION Last Admin: 06/09/20 21:07 Dose: 30 ml Documented by: Bisacodyl (Dulcolax) 10 mg RECTAL UD PRN PRN Reason: If no BM Enoxaparin Sodium (Lovenox) 40 mg SC DAILY@2100 [facility] Last Admin: 06/11/20 20:56 Dose: 40 mg Documented by: Ephedrine Sulfate () 10 mg IV Q10M PRN PRN Reason: hypotension Ephedrine Sulfate () 10 mg IM Q30M PRN PRN Reason: hypotension Fentanyl Citrate (Sublimaze (100mcg Ampule)) 25 - 50 mcg IV Q2H PRN PRN PRN Reason: Pain Score 4-10/10 Hydrocortisone (Hytone) 1 applic TOPICAL TID PRN PRN; Protocol PRN Reason: Discomfort Lactated Ringer's () 500 mls @ 999 mls/hr IV .Q31M PRN PRN Reason: Epidural Last Infusion: 06/09/20 14:00 Dose: Infused Documented by: Lactated Ringer's () 500 mls @ 999 mls/hr IV .Q31M PRN PRN Reason: Corrective Measures Last Infusion: 06/10/20 00:05 Dose: Infused Documented by: Lactated Ringer's () 1,000 mls @ 50 mls/hr IV .Q20H [facility] Last Infusion: 06/10/20 09:03 Dose: Infused Documented by: Naloxone HCl 4 mg/ Dextrose 504 mls @ 0 mls/hr IV .Q0M PRN; Protocol PRN Reason: To maintain Resp. rate >10 Methylergonovine Maleate (Methergine) 0.2 mg IM X1 PRN PRN Reason: Uterine Atony Naloxone HCl (Narcan) 0.02 mg IV Q1M PRN PRN Reason: RR <10 and pt unresponsive Naproxen (Naprosyn) 500 mg PO Q8 [facility] Last Admin: 06/12/20 14:51 Dose: 500 mg Documented by: Ondansetron HCl (Zofran) 4 mg IV Q4H PRN PRN PRN Reason: Nausea Oxycodone HCl (Oxyir) 5 - 10 mg PO Q4H PRN PRN PRN Reason: Pain Score 4-10/10 Last Admin: 06/12/20 11:16 Dose: 5 mg Documented by: Polyethylene Glycol (Miralax) 17 gm PO DAILY [facility] Last Admin: 06/12/20 11:16 Dose: 17 gm Documented by: Prochlorperazine Edisylate (Compazine Iv) 10 mg IV Q6H PRN PRN PRN Reason: NAUSEA Senna/Docusate Sodium (Senokot-S, Mabel-Colace) 0 tablet PO DAILY [facility] Last Admin: 06/12/20 11:17 Dose: 2 tablet Documented by: Simethicone (Mylicon) 80 mg PO PCHS PRN PRN Reason: Indigestion/stomach pain Last Admin: 06/12/20 11:17 Dose: 80 mg Documented by: Sodium Chloride () 5 - 15 ml IV UD PRN PRN Reason: SALINE FLUSH Last Admin: 06/12/20 08:15 Dose: 10 ml Documented by: Medical Necessity - Tobacco Use Smoking Status: Current some day smoker Assessment/Plan All Active Problems (Last Reviewed 06/05/20 @ 11:02 by Rachna Donahue) Post-dates (Acute) CPD (cephalo-pelvic disproportion) (Acute) hemorrhage (Acute) Cervical laceration (Acute) Pelvic fracture (Acute) Hepatitis C (Acute) (Acute) Supervision of high risk , antepartum (Acute) Tobacco use affecting , antepartum (Acute) Acute respiratory failure (Resolved) Aspiration pneumonia (Resolved) Overdose of heroin (Resolved) Severe sepsis (Resolved) POD#2 s/p PLTCS and POD#2 from ex lap for hemorrhage 1. Acute blood loss anemia - Hb 6.7 this am likely as she is equilibrating following hemorrhage, now 8.0 after 1u PRBCs 2. Post-op care - Pain well controlled with PO pain meds - lochia is light - Ambulating and voiding without difficulty - Not yet passing gas - encouraged ambulation and chewing gum 3. Leukocytosis - improving except slight bump from 11 to 12 after transfusion likely related to receiving blood products, remains afebrile and remainder of vitals stable, no concern for infection 4. - provided support 5. Rh+ 6. Rubella immune 7. DVT ppx - lovenox
[2020-06-12] MEDS: Enoxaparin 40 MG/0.4 ML Syringe SC (20:55)
[2020-06-13] MEDS: oxyCODONE 5 MG Tablet PO ×2 (01:26→10:33)
[2020-06-13] MEDS: Acetaminophen 500 MG Tablet 1000 MG PO ×3 (02:52→14:54)
[2020-06-13 02:55] VITALS: BP 119/64; PULSE 81; RESP 16; TEMP 36.7; O2SAT 97
[2020-06-13] MEDS: Naproxen 250 MG Tablet 500 MG PO ×2 (06:07→14:36)
--- NOTE | 2020-06-13 07:57 | PCM.PN.OB ---
Patient Problems: Active and Suspected Problems (Last Reviewed 06/05/20 @ 11:02 by Rachna Donahue) Post-dates (Acute) CPD (cephalo-pelvic disproportion) (Acute) hemorrhage (Acute) Cervical laceration (Acute) Subjective: Doing well, no complaints.Pain controlled. Denies CP, SOB, N,V. Ambulating well, tolerating po. Lochia moderate, going well. - Physical Exam Vitals/I&O's: Vital Signs Temp Pulse Resp BP Pulse Ox 98.1 F 81 16 119/64 97 06/13/20 02:55 06/13/20 02:55 06/13/20 02:55 06/13/20 02:55 06/13/20 02:55 Oxygen Flow Rate (L/min) 2 Oxygen Delivery Method Room Air Weight: 254 lb Body Mass Index (BMI) 37.5 Finger Stick Blood Glucose 309 Intake and Output for Last 24 Hours 06/11/20 06/12/20 06/13/20 23:59 23:59 23:59 Intake Total 3300 / 3300 400 / 400 Output Total 4700 / 4700 Balance -1400 / -1400 400 / 400 General: Alert, Oriented x3 Abdomen: Soft, Non-Distended, - - Dressing dry and intact, FF below U Neurological: Neuro grossly intact Psych/Mental Status: Normal Affect, Appropriate Laboratory Results 06/09/20 07:40: Crossmatch See Detail 06/12/20 15:00: WBC 12.9 H, RBC 2.65 L, Hgb 8.0 L, Hct 24.0 L, MCV 90.6, MCH 30.2, MCHC 33.3, RDW Std Deviation 48.5 H, RDW Coeff of Lorena 14.6, Plt Count 269, MPV 9.6 Current Medications Acetaminophen (Tylenol) 325 - 650 mg PO Q4H PRN PRN PRN Reason: Pain Score 1-3/10 Acetaminophen (Tylenol) 1,000 mg PO Q6H [facility] Last Admin: 06/13/20 02:52 Dose: 1,000 mg Documented by: Al Hydroxide/Mg Hydroxide (Mylanta Ii) 15 - 30 ml PO Q4H PRN PRN PRN Reason: INDIGESTION Last Admin: 06/09/20 21:07 Dose: 30 ml Documented by: Bisacodyl (Dulcolax) 10 mg RECTAL UD PRN PRN Reason: If no BM Enoxaparin Sodium (Lovenox) 40 mg SC DAILY@2100 [facility] Last Admin: 06/12/20 20:55 Dose: 40 mg Documented by: Ephedrine Sulfate () 10 mg IV Q10M PRN PRN Reason: hypotension Ephedrine Sulfate () 10 mg IM Q30M PRN PRN Reason: hypotension Fentanyl Citrate (Sublimaze (100mcg Ampule)) 25 - 50 mcg IV Q2H PRN PRN PRN Reason: Pain Score 4-10/10 Hydrocortisone (Hytone) 1 applic TOPICAL TID PRN PRN; Protocol PRN Reason: Discomfort Lactated Ringer's () 500 mls @ 999 mls/hr IV .Q31M PRN PRN Reason: Epidural Last Infusion: 06/09/20 14:00 Dose: Infused Documented by: Lactated Ringer's () 500 mls @ 999 mls/hr IV .Q31M PRN PRN Reason: Corrective Measures Last Infusion: 06/10/20 00:05 Dose: Infused Documented by: Lactated Ringer's () 1,000 mls @ 50 mls/hr IV .Q20H [facility] Last Infusion: 06/10/20 09:03 Dose: Infused Documented by: Naloxone HCl 4 mg/ Dextrose 504 mls @ 0 mls/hr IV .Q0M PRN; Protocol PRN Reason: To maintain Resp. rate >10 Methylergonovine Maleate (Methergine) 0.2 mg IM X1 PRN PRN Reason: Uterine Atony Naloxone HCl (Narcan) 0.02 mg IV Q1M PRN PRN Reason: RR <10 and pt unresponsive Naproxen (Naprosyn) 500 mg PO Q8 [facility] Last Admin: 06/13/20 06:07 Dose: 500 mg Documented by: Ondansetron HCl (Zofran) 4 mg IV Q4H PRN PRN PRN Reason: Nausea Oxycodone HCl (Oxyir) 5 - 10 mg PO Q4H PRN PRN PRN Reason: Pain Score 4-10/10 Last Admin: 06/13/20 01:26 Dose: 5 mg Documented by: Polyethylene Glycol (Miralax) 17 gm PO DAILY [facility] Last Admin: 06/12/20 11:16 Dose: 17 gm Documented by: Prochlorperazine Edisylate (Compazine Iv) 10 mg IV Q6H PRN PRN PRN Reason: NAUSEA Senna/Docusate Sodium (Senokot-S, Mabel-Colace) 0 tablet PO DAILY [facility] Last Admin: 06/12/20 11:17 Dose: 2 tablet Documented by: Simethicone (Mylicon) 80 mg PO PCHS PRN PRN Reason: Indigestion/stomach pain Last Admin: 06/12/20 11:17 Dose: 80 mg Documented by: Sodium Chloride () 5 - 15 ml IV UD PRN PRN Reason: SALINE FLUSH Last Admin: 06/12/20 08:15 Dose: 10 ml Documented by: Medical Necessity - Tobacco Use Smoking Status: Current some day smoker Assessment/Plan All Active Problems (Last Reviewed 06/05/20 @ 11:02 by Rachna Donahue) Post-dates (Acute) CPD (cephalo-pelvic disproportion) (Acute) hemorrhage (Acute) Cervical laceration (Acute) Pelvic fracture (Acute) Hepatitis C (Acute) (Acute) Supervision of high risk , antepartum (Acute) Tobacco use affecting , antepartum (Acute) Acute respiratory failure (Resolved) Aspiration pneumonia (Resolved) Overdose of heroin (Resolved) Severe sepsis (Resolved) s/p LTCS PPD # 3 with postpartem hemorrhage, resolved 1. routine post care 2. breast feeding- support given 3. rh positive 4. rubella immune 5. repeat CBC today 6. Encourage continue PNV and add Fe alternate time 7. stool softener prn 8. plans home today 9. discussed pain control. Initially she declines narcotic. Then discussed limited Rx and present and he will manage that.
--- NOTE | 2020-06-13 08:07 | DCINST_ITS ---
Additional Instructions: If you experience any of the following, contact your healthcare provider. * Bleeding that soaks a pad every hour for 2 hours * Fever 100.4 or higher * Unrelieved incision or abdominal pain * Swelling, redness, discharge or bleeding from your incision or episiotomy site * Your incision begins to separate * Problems urinating (including inability to urinate or burning while urinating). * Visual changes * Severe headache * Flu-like symptoms * Pain or redness in one of both of your breasts * Pain, warmth, tenderness or swelling in your legs, especially the calf area * Frequent nausea and vomiting * Symptoms of depression or anxiety If you experience any of the following, call 911 or go to the nearest Emergency Room. * Chest pain * Problems breathing * Seizure activity * Partial or complete paralysis of a body part, slurred speech, weakness or drooping of the face, or a sudden inability to walk or hold your balance Allergies/Adverse Reactions: Allergies gabapentin Allergy (Intermediate, Verified 06/09/20 07:52) Swollen lymph glands lethargy N/V Medications to take at Discharge ondansetron 4 mg disintegrating tablet 4 mg PO Q8H PRN PRN #30 tab 05/22/20 Pnv No.95/Ferrous Fum/Folic AC [ Caplet] 1 ea PO 06/09/20 Naproxen [Naprosyn] 500 mg PO BID PRN PRN #60 tab 06/13/20 Oxycodone HCl/Acetaminophen [Percocet 5/325] 1 - 2 tab PO Q4H PRN PRN 3 Days #5 tab 06/13/20 The following prescriptions were given: Naproxen [Naprosyn] 500 mg PO BID PRN PRN #60 tab PRN Reason: Pain Transmission Status: Received by [facility] Oxycodone HCl/Acetaminophen [Percocet 5/325] 1 - 2 tab PO Q4H PRN PRN 3 Days #5 tab PRN Reason: Pain Transmission Status: [id number] Follow-Up: Call to make an appointment with your doctor for an incision check in 1-2 weeks. You will also need a 6 week post- follow up appointment. Test results from this visit will be discussed in further detail at your follow- up appointment, if applicable. Primary Care Physician: Florentino Dumont MD [Primary Care Provider] -
--- NOTE | 2020-06-13 08:07 | PCM.DCCSEC ---
Additional Instructions: If you experience any of the following, contact your healthcare provider. Bleeding that soaks a pad every hour for 2 hours Fever 100.4 or higher Unrelieved incision or abdominal pain Swelling, redness, discharge or bleeding from your incision or episiotomy site Your incision begins to separate Problems urinating (including inability to urinate or burning while urinating). Visual changes Severe headache Flu-like symptoms Pain or redness in one of both of your breasts Pain, warmth, tenderness or swelling in your legs, especially the calf area Frequent nausea and vomiting Symptoms of depression or anxiety If you experience any of the following, call 911 or go to the nearest Emergency Room. Chest pain Problems breathing Seizure activity Partial or complete paralysis of a body part, slurred speech, weakness or drooping of the face, or a sudden inability to walk or hold your balance Allergies/Adverse Reactions: Allergies gabapentin Allergy (Intermediate, Verified 06/09/20 07:52) Swollen lymph glands lethargy N/V Medications to take at Discharge ondansetron 4 mg disintegrating tablet 4 mg PO Q8H PRN PRN #30 tab 05/22/20 Pnv No.95/Ferrous Fum/Folic AC [ Caplet] 1 ea PO 06/09/20 Naproxen [Naprosyn] 500 mg PO BID PRN PRN #60 tab 06/13/20 Oxycodone HCl/Acetaminophen [Percocet 5/325] 1 - 2 tab PO Q4H PRN PRN 3 Days #5 tab 06/13/20 The following prescriptions were given: Naproxen [Naprosyn] 500 mg PO BID PRN PRN #60 tab PRN Reason: Pain Transmission Status: Received by [facility] Oxycodone HCl/Acetaminophen [Percocet 5/325] 1 - 2 tab PO Q4H PRN PRN 3 Days #5 tab PRN Reason: Pain Transmission Status: [id number] Follow-Up: Call to make an appointment with your doctor for an incision check in 1-2 weeks. You will also need a 6 week post- follow up appointment. Test results from this visit will be discussed in further detail at your follow-up appointment, if applicable. Primary Care Physician: Florentino Dumont MD [Primary Care Provider] -
[2020-06-13 08:33] VITALS: BP 128/73; PULSE 74; RESP 16; TEMP 36.7; O2SAT 97
[2020-06-13 09:02] LABS: Hemoglobin 8.1 g/dL (12.0-15.0); Mean Corp Hgb Conc 32.4 g/dL (32-36); Mean Corpuscular Hgb 29.3 pg (27.0-32.0); Mean Corpuscular Volume 90.6 fL (81-99); Mean Platelet Vol. 9.3 fl (6.2-12.0); Platelet Count 275 K/mm3 (150-450); RBC Distribution Width CV 14.4 % (11.6-14.6); RBC Distribution Width SD 47.4 fl (35.1-43.9); Red Blood Count 2.76 M/mm3 (4.2-5.4); White Blood Count 11.9 K/mm3 (4.4-11.0)
[2020-06-13] MEDS: Senna/Docusate Sodium 1 Tablet PO (10:24)
[2020-06-13] MEDS: Polyethylene Glycol 3350 17 GM PACKET PO (10:25)
--- NOTE | 2020-06-13 12:07 | CASEMGMT ---
Social Work Assessment Labor and Delivery Unit Patient Address: [address] [place] [address] , [place] [address] Phone number: [phone] Date of Referral: 06/11/2020 Time of Referral: 829 Referred By: Verbal notification by nursing Date of Intervention: 04/27/2020 Time of Intervention: 1130 Reason for Referral: Maternal history of substance use disorder, depression, and anxiety; first-time mom. History obtained from: Medical records and mother of baby (MOB) Allie Orozco; father of baby (FOB) Walker Figueroa also present for part of assessment. Household composition: MOB and FOB live together in a home. Home situation is reported to be safe and adequate. CHENCHOB does have an older daughter named Florian who is age 7 and who lives at the house part-time. Patient's parent/guardian status: MUSTAPHA is a 29-year-old single female involved with FOB for the last year and a half. MUSTAPHA denies any form of abuse, control, or intimidation in this relationship. [place] baby is the first child for MOB and FOB together. [place] baby girl is to be named Ingrid Figueroa, born 01/26/2020. Medical History: And will be is to 1, with care starting at 10 weeks. MUSTAPHA has a history of hepatitis C and delivered baby via section. MOB with hemorrhage after delivery. Baby Ingrid was born weighing 8 pounds 6 ounces. Apgars 8 and 8 at 1 and 5 minutes of life. Educational Status: MUSTAPHA graduated from high school and has additional training in cosmetology. MUSTAPHA is able to read right and understand what is read. No learning comprehension issues noted. 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 MUSTAPHA was working at [employer] in [place] and is uncertain when she will return back to work. Finances are reported to be adequate at this time. Infant Supplies: MOB and FOB report to have all needed supplies including safe sleep space for the baby, car seat, clothing, diapers, and wipes. MOB is breast-feeding the baby. Childcare/Caregiver(s): MOB will be the primary caregiver of the baby. MOB will receive help from FOB when he is not working. Transportation: No concerns. Programs/Agencies Involved: MUSTAPHA does have Medicaid through [employer] and family services. MOB reports plan to apply for WIC. MOB verbally agrees to a help me grow referral. MOB is an active client at [facility]. MOB does report that she needs to establish with a new counselor, as her prior counselor Josephine left the agency during this . Children Services/Legal Issues: No history of children services involvement. No current legal issues reported. Behavioral Health Issues: Mental Health History: MOB reports to have a history of depression, anxiety, and self injury. MOB reports she is not self injured since prior to becoming sober, so this is been a few years and no reported desires to return to this type of activity. MOB denies any type of suicidal thoughts, plans, or intent during this . MOB reports the last time she was suicidal was prior to becoming sober. MOB does have a history of treatment at [facility] behavioral health program and at [facility]. Substance Use History: MOB reports that she has been sober since 04/14/2018. MOB reports history of polysubstance abuse including heroin, fentanyl, car fentanyl, methamphetamines, cocaine, prescription pill abuse, and benzodiazepines. MOB reports getting into legal trouble in 2018-lead MOB to become sober. MOB reports believe that [facility] drug court helped MOB to stay on the right path. And will be reports alcohol use to be an issue for her so therefore does not drink any longer. Family History: No reports of any family history. Drug Screens: MOB with negative drug screens on 12/06/2019, 01/03/2020, and 05/15/2020. No drug screening performed for the baby due to multiple negative drug screens for MOB. Family/Social Stressors: No reported stressors at this time other than the COVID pandemic and MOB not been able to work since about 7-1/2 months . Due to the pandemic and also in part due to MOB's prior counselor Josephine leaving the [facility] M OB has not been in counseling for the last couple of months. Support Systems: MOB reports to have support from FOB, MOB's parents, and other family and friends support. MOB also reports to know that insert 180 is a good support for her as well. Depression/Shaken Baby/Safe Sleeping depression and anxiety discussed with both MOB and FOB, risk factors discussed as well as resources. Educated to shaken baby prevention and safe sleeping. Written material on all topics provided to parents. ASSESSMENT: Met with MOB and FOB together and MOB's room. MOB and FOB both pleasant and cooperative. MOB held good eye contact, appropriate affect and mood, nondefensive in conversation. FOB quiet overall, but did ask appropriate and supportive questions intermittently. FOB holding baby most of visit, and handed baby over to MOB when FOB stepped outside. MOB and FOB report to have needed supplies for baby, and deny any home going needs this way. FOB is off of work for 2 weeks to help MOB with transition home. MOB agrees to a [facility] referral, and plans to self refer to [facility]. MOB also states intent to call [facility] and start, at least phone calls, with a new counselor. [place] Depression Screen completed with MOB and score is a 4, below the threshold for depression. MOB reports had more anxiety in the weeks leading up to delivery, but that this is a normal thing for MOB to manage anxiety, and reports now that baby is born to be feeling better. MOB reports to feel a connection to the baby. No voiced concerns by nursing staff on parent/child interactions. Safe Plan of Care for related to substance use: Continue with abstinence and with counseling. Sober date reported as 04.14.2018. PLAN: MOB and baby to home when ready. [facility] referral to be made. [facility] resources provided as well as information and resources on depression, shaken baby prevention, and safe sleeping. No other services requested or indicated. -DAVID Zuleta MSW *Information documented in this assessment generated with [employer] System*
--- NOTE | 2020-06-13 13:08 | CASEMGMT ---
Social Work Labor and Delivery unit Help me grow referral submitted through the [facility] assisted care web-based referral system. [] No other services requested or indicated. -MARTIN Zuleta, INFORMATION SECURITY ENGINEER. *Information documented in this note generated via [employer] system*
[2020-06-13 14:28] VITALS: BP 115/79; PULSE 77; RESP 16; TEMP 36.6; O2SAT 97
--- NOTE | 2020-06-17 11:39 | PCM.DC.SUM ---
Discharge Date and Diagnosis Date of Admission: 06/09/20 - Secondary Discharge Diagnosis Chronic Problems: Chronic Problems (Last Reviewed 06/05/20 @ 11:02 by Rachna Donahue) History of drug dependence (Chronic) in recovery since april 2018, heroin/meth/fentanyl. random tox screens.(03/27 neg) Depression (Chronic) sees [facility], [facility] Hospital Course and Treatment Consultations 06/09/20 07:14 Consult: Anesthesia Routine Comment: Reason For Exam: Labor Operations: None, - - PLTCS for failure to progress. Return to surgery for repair of cervical laceration. Summary of Care Provided: The patient is a 29 year old F Patient underwent section with postpartem hemorrhage secondary to cervical laceration. Second surgery to repair. Blood products transfused. Return of normal bowel and bladder function. Ambulating, voiding and tolerating PO. Stable for discharge home POD #3. - Physical Exam Vitals/I&O's: Vital Signs Temp Pulse Resp BP Pulse Ox 97.9 F 77 16 115/79 97 06/13/20 14:28 06/13/20 14:28 06/13/20 14:28 06/13/20 14:28 06/13/20 14:28 Oxygen Flow Rate (L/min) 2 Oxygen Delivery Method Room Air Weight: 254 lb Body Mass Index (BMI) 37.5 Finger Stick Blood Glucose 309 Home Medications: Medications to take at Discharge ondansetron 4 mg disintegrating tablet 4 mg PO Q8H PRN PRN #30 tab 05/22/20 Pnv No.95/Ferrous Fum/Folic AC [ Caplet] 1 ea PO DAILY 06/09/20 Naproxen [Naprosyn] 500 mg PO BID PRN PRN #60 tab 06/13/20 Following Prescriptions Were Given to Patient: Naproxen [Naprosyn] 500 mg PO BID PRN PRN #60 tab PRN Reason: Pain Transmission Status: Received by [facility] Primary Care Physician: Florentino Dumont MD [Primary Care Provider] - Medical Necessity - Tobacco Use Smoking Status: Former smoker Meaningful Use Info Meaningful Use Diagnoses (Choose all that apply): None applicable
== END 2020-06-13 15:50 | disposition home or self-care (01) | DRG 540 ==
PROVIDERS: Admitting Provider Obstetrics & Gynecology; PCP Family Medicine; Visit Provider Obstetrics & Gynecology
DX: O62.1 Secondary uterine inertia (principal); O48.0 Post-term pregnancy; O77.0 Labor and delivery complicated by meconium in amniotic fluid; O71.3 Obstetric laceration of cervix; O33.9 Maternal care for disproportion, unspecified; O9A.22 Injury, poisoning and certain other consequences of external causes complicating childbirth; S32.9XXA Fracture of unspecified parts of lumbosacral spine and pelvis, initial encounter for closed fracture; X58.XXXA Exposure to other specified factors, initial encounter; O99.344 Other mental disorders complicating childbirth; F32.9 Major depressive disorder, single episode, unspecified; O99.334 Smoking (tobacco) complicating childbirth; F17.200 Nicotine dependence, unspecified, uncomplicated; O90.81 Anemia of the puerperium; D62 Acute posthemorrhagic anemia; O72.1 Other immediate postpartum hemorrhage; O99.12 Other diseases of the blood and blood-forming organs and certain disorders involving the immune mechanism complicating childbirth; D72.829 Elevated white blood cell count, unspecified; O98.42 Viral hepatitis complicating childbirth; B19.20 Unspecified viral hepatitis C without hepatic coma; O99.284 Endocrine, nutritional and metabolic diseases complicating childbirth; E71.311 Medium chain acyl CoA dehydrogenase deficiency; Z3A.41 41 weeks gestation of pregnancy; Z37.0 Single live birth; Z87.898 Personal history of other specified conditions
CPT/HCPCS: 36415; 59025; 59050; 80048; 80053; 83605; 85025; 85027; 85384; 85610; 85730; 86850; 86900; 86901; 86920; 87635; 94799; 99218; J7030; J7040; J7120; P9016; A4216; G0378; J2405; Q9968; U0003

== ENCOUNTER 2020-06-13 21:27 | Emergency (ER) | payer MEDICAID, SELFPAY ==
[2020-06-09 07:10] VITALS: BMI 37.5
[2020-06-13 21:29] VITALS: BP 137/85; PULSE 90; RESP 16; TEMP 36.6; O2SAT 100; BMI 34.0
--- NOTE | 2020-06-13 23:28 | ED.DCSUM_ITS ---
History of Present Illness Chief Complaint: Edema Informant: Patient Narrative: Patient is a 29-year-old previously healthy female who presents to the emergency department for right leg swelling, right arm paresthesia. She had a delivery of her daughter this previous Wednesday. This was complicated by uterine tear with significant hemorrhage. She states that she really received 4 units of blood during a section. She was kept into the hospital and just discharged earlier today. She feels like the leg has been heavy because of the swelling. She denies any pain in the leg/calf. No overlying skin changes. She believes that this might of been like this for a few days in the hospital but she is not sure. She is not on any anticoagulation. She denies any fevers or chills. She does feel anxious and this does make her feel slightly short of breath but denies any chest pain. She denies any cough, cold, congestion. No history of DVT/PE. She denies any significant abdominal pain past the incision site. She is still having some very mild vaginal bleeding. Denies any discharge. Denies any change in bowel habits. She is currently breast-feeding and is anxious to get back home to feed the infant. She did have an IV infiltrate during her hospital stay of that right arm. She denies any loss of sensation. Denies any loss of muscle strength in any extremities. No headaches. No vision changes. No speech issues. Past Medical History - Allergies and Home Meds Allergies/Adverse Reactions: Allergies gabapentin Allergy (Intermediate, Verified 06/13/20 21:32) Swollen lymph glands lethargy N/V Primary Care Physician: Florentino Dumont MD [Primary Care Provider] - 2 Days Prior records reviewed: Yes Past Medical History: None Surgical History: - - section Smoking Status: Former smoker - Family History Paternal Family History: Family History (Last Reviewed 06/05/20 @ 11:02 by Rachna Donahue) Father Heart disease Family History: Reports: Heart Disease Review of Systems All systems negative except as indicated General: Denies: Chills, Fever Eyes: Denies: Visual changes - bilaterally ENT: Denies: Rhinorrhea Cardiovascular: Denies: Chest pain Respiratory: Reports: Dyspnea, Cough. Denies: Dyspnea on exertion Gastrointestinal: Denies: Abdominal pain, Nausea, Vomiting, Diarrhea, Constipation Genitourinary: Denies: Dysuria, Hematuria, Frequency Musculoskeletal: Reports: Swelling. Denies: Back pain, Extremity Pain Skin: Denies: Rash, Wounds Neurological: Reports: Parasthesia. Denies: Headache, Weakness, Numbness Psych: Denies: Depression Hematologic: Denies: Easy bruising, Easy bleeding Physical Exam Vital Signs/Narrative: Vital Signs Temp Pulse Resp BP Pulse Ox 06/13/20 21:29 97.9 F 90 16 137/85 H 100 Inital Vital Signs reviewed: Yes - Non-tachycardic, not hypoxic General: Well nourished, Well developed Head: Normocephalic, Atraumatic Eyes: Perrl, EOMI ENT: Moist mucous membranes, No rhinorrhea Neck: Supple, Nontender Cardiovascular: Regular rate, Regular rhythm, No murmurs Respiratory: No distress, CTA bilaterally, Chest nontender Abdomen: Soft, Nontender, Nondistended, - - Wound still has postop dressing present. Otherwise surrounding area does not appear erythematous, no warmth. No appreciable mass/abscess. Back: Nontender, Normal Inspection. Negative for: CVA tenderness Extremities: Nontender, Edema - 1+ pitting edema bilateral. I cannot distinguish any unilateral difference in swelling.. Negative for: Calf Tenderness Skin: Normal color, No rash Neurological: Alert, Oriented x3, Cranial nerves II-XII grossly intact, Normal Strength, Normal Sensation, Right side facial droop, - - Patient states that there may be a very small change in sensation when brushing the forearm on the right compared to the left. This is only a 10 cm region. Otherwise normal registration scheduling specialist strength. 2+ radial pulse. 5 out of 5 muscle strength in all extremities.. Negative for: Left side facial droop Psychological: Normal affect, Normal Mood Diagnostic/Tx/Re-eval - Medical Decision Making Patient presents emerge department for right leg swelling. Also having some paresthesia of a small area of the dorsal right forearm. I do not feel that this is a CVA causing her symptoms as it is only a very small area and does not fit a clinical picture for a stroke. Unfortunately do not have ultrasound here at this time to evaluate for DVT. She would not want to wait for this anyway she says. She wants to get home to breast-feed her child. Write a prescription for her to have an appointment tomorrow to get this done. With bilateral edema and hemorrhage during the operation we will check basic lab work at this time. Otherwise vital signs have been stable throughout ED stay. I do not feel she has a pulmonary embolism as she is not tachycardic, no chest pain, satting on a percent on room air. Lab work showed the patient to be anemic but her hemoglobin has been trending upward. Liver enzymes are within normal limits. Her albumin is low so I believe that this is playing a part in her peripheral edema. I have a low suspicion for DVT as both legs are swollen but will order the ultrasound for evaluation tomorrow. Patient otherwise has been nontoxic-appearing. Vital signs stable throughout ED stay. He does feel comfortable going home at this time. He is to follow-up with her PCP/[facility]. If she develops any chest pain, shortness of breath she is to return to the emergency department immediately. She understands and is agreeable this plan. Will discharge home in stable condition ED Disposition - Plan for ED Patient: Disposition: Home or Assisted Living Diagnosis: Leg swelling, Anemia Instructions: ED Peripheral Edema, Bilateral Referrals: Florentino Dumont MD [Primary Care Provider] - 2 Days
[2020-06-14 00:03] LABS: Bacteria 0 SEEN /hpf (None Seen); Mucous, Urine 0 SEEN /hpf (<or=2+); Squamous Epithelial Cells - UA 0 SEEN /hpf (5-10)
[2020-06-14 00:05] LABS: Absolute Lymphocyte Count 1.59 X10^3/uL (0.83-4.51); Absolute Neutrophil Count 10.2 X10^3/uL (2.0-7.7); Basophil# 0.05 X10^3/uL; Basophil% 0.4 % (0-1); Eosinophil# 0.25 X10^3/uL; Hematocrit 26.7 % (37-47); Hemoglobin 8.7 g/dL (12.0-15.0); Lymphocyte # 1.59 X10^3/ul (4.0); Lymphocyte % 12.6 % (19-41); Mean Corp Hgb Conc 32.6 g/dL (32-36); Mean Corpuscular Hgb 29.6 pg (27.0-32.0); Mean Corpuscular Volume 90.8 fL (81-99); Mean Platelet Vol. 8.9 fl (6.2-12.0); Monocyte# 0.43 X10^3/uL; Monocyte% 3.4 % (0-10); NRBC Flagged by Analyzer 0 % (0-5); Neutrophil # 10.16 X10^3/uL (2.7-7.7); Neutrophil % 80.7 % (47-70); Platelet Count 347 K/mm3 (150-450); RBC Distribution Width CV 14.3 % (11.6-14.6); Red Blood Count 2.94 M/mm3 (4.2-5.4); White Blood Count 12.6 K/mm3 (4.4-11.0)
[2020-06-14 00:11] LABS: Color, Urine Yellow (Yellow); Glucose, Dipstick Normal (Normal); Ketone-Dipstick Negative (Negative); Leukocyte Esterase-Dipstick 500 /ul (Negative); Nitrite-Dipstick Negative (Negative); Occult Blood-Urine 250 /ul (Negative); Protein-Dipstick Negative (Negative); Urine Bilirubin Dipstick Negative (Negative); Urine Clarity Clear (Clear); Urine Urobilinogen Normal (Normal)
[2020-06-14 00:19] LABS: ALB/GLOB Ratio 0.5 RATIO (0.9-2.4); AST(SGOT) 19 U/L (15-37); Alanine Aminotransfer ALT/SGPT 21 U/L (13-56); Alkaline Phosphatase 131 U/L (45-117); Anion Gap 3 (5-15); BUN 11 mg/dL (7-18); BUN/Creat Ratio 15.2 RATIO (10-20); Calcium,Total 8.6 mg/dL (8.5-10.1); Chloride 116 mmol/L (98-107); Creatinine, Serum 0.72 mg/dL (0.55-1.02); EST Glomerular Filtration Rate 101 mL/min (>60); Est Glom Filt Rate - Afr Amer 122 mL/min (>60); Estimated Creatinine Clearance 121.57 ml/min; Globulin 3.9 g/dL (2.2-4.2); Glucose 85 mg/dL (74-106); Potassium 3.8 mmol/L (3.5-5.1); Protein, Total 5.9 g/dL (6.4-8.2); Red Blood Cells-Urine 0-5 SEEN /hpf (0-5); Sodium Level 144 mmol/L (136-145); White Blood Cells 0-5 SEEN /hpf (0-5)
[2020-06-14 00:37] VITALS: BP 136/82; PULSE 77; RESP 14; O2SAT 98
== END 2020-06-14 00:37 | disposition home or self-care (01) ==
PROVIDERS: Emergency Provider Emergency Medicine; PCP Family Medicine
DX: R60.0 Localized edema (principal); D64.9 Anemia, unspecified; Z87.891 Personal history of nicotine dependence
CPT/HCPCS: 80053; 81001; 85025; 99282; A4216

== ENCOUNTER → 2020-06-19 09:17 | Outpatient (CLI) | payer MEDICAID, SELFPAY ==
[2020-06-19 09:05] VITALS: BMI 34.0
[2020-06-19 09:31] LABS: Absolute Lymphocyte Count 1.84 X10^3/uL (0.83-4.51); Absolute Neutrophil Count 11.6 X10^3/uL (2.0-7.7); Basophil# 0.06 X10^3/uL; Basophil% 0.4 % (0-1); Eosinophil# 0.22 X10^3/uL; Eosinophils% 1.5 % (0-5); Hematocrit 32.1 % (37-47); Hemoglobin 10.2 g/dL (12.0-15.0); Lymphocyte # 1.84 X10^3/ul (4.0); Lymphocyte % 12.7 % (19-41); Mean Corp Hgb Conc 31.8 g/dL (32-36); Mean Corpuscular Volume 91.2 fL (81-99); Mean Platelet Vol. 8.4 fl (6.2-12.0); Monocyte# 0.67 X10^3/uL; Monocyte% 4.6 % (0-10); NRBC Flagged by Analyzer 0 % (0-5); Neutrophil # 11.55 X10^3/uL (2.7-7.7); Platelet Count 622 K/mm3 (150-450); RBC Distribution Width CV 13.2 % (11.6-14.6); RBC Distribution Width SD 44.4 fl (35.1-43.9); Red Blood Count 3.52 M/mm3 (4.2-5.4); White Blood Count 14.5 K/mm3 (4.4-11.0)
== END ==
PROVIDERS: PCP Family Medicine; Referring Provider Obstetrics & Gynecology; Visit Provider Obstetrics & Gynecology
DX: O72.1 Other immediate postpartum hemorrhage (principal); Z3A.00 Weeks of gestation of pregnancy not specified
CPT/HCPCS: 36415; 85025

== ENCOUNTER → 2020-09-16 07:57 | Outpatient (CLI) | payer MEDICAID, SELFPAY ==
[2020-07-22 16:15] VITALS: BMI 34.0
[2020-09-16 10:20] LABS: Absolute Lymphocyte Count 1.91 X10^3/uL (0.83-4.51); Absolute Neutrophil Count 5.2 X10^3/uL (2.0-7.7); Basophil# 0.05 X10^3/uL; Basophil% 0.6 % (0-1); Eosinophil# 0.22 X10^3/uL; Eosinophils% 2.8 % (0-5); Hematocrit 40.6 % (37-47); Hemoglobin 12.4 g/dL (12.0-15.0); Lymphocyte # 1.91 X10^3/ul (4.0); Lymphocyte % 24.4 % (19-41); Mean Corp Hgb Conc 30.5 g/dL (32-36); Mean Corpuscular Hgb 25.2 pg (27.0-32.0); Mean Corpuscular Volume 82.4 fL (81-99); Mean Platelet Vol. 10.2 fl (6.2-12.0); Monocyte# 0.47 X10^3/uL; NRBC Flagged by Analyzer 0 % (0-5); Neutrophil # 5.17 X10^3/uL (2.7-7.7); Neutrophil % 65.9 % (47-70); Platelet Count 456 K/mm3 (150-450); RBC Distribution Width CV 14.6 % (11.6-14.6); RBC Distribution Width SD 43.4 fl (35.1-43.9); Red Blood Count 4.93 M/mm3 (4.2-5.4); White Blood Count 7.8 K/mm3 (4.4-11.0)
[2020-09-16 10:43] LABS: AST(SGOT) 17 U/L (15-37); Alanine Aminotransfer ALT/SGPT 29 U/L (13-56); Albumin, Serum 3.9 g/dL (3.2-5.0); Alkaline Phosphatase 96 U/L (45-117); Anion Gap 9 (5-15); BUN 15 mg/dL (7-18); BUN/Creat Ratio 16.5 RATIO (10-20); Calcium,Total 9.1 mg/dL (8.5-10.1); Chloride 106 mmol/L (98-107); Creatinine, Serum 0.91 mg/dL (0.55-1.02); EST Glomerular Filtration Rate 78 mL/min (>60); Est Glom Filt Rate - Afr Amer 94 mL/min (>60); Globulin 3.9 g/dL (2.2-4.2); Glucose 98 mg/dL (74-106); Potassium 3.8 mmol/L (3.5-5.1); Protein, Total 7.8 g/dL (6.4-8.2); Sodium Level 140 mmol/L (136-145); T4 Free Direct 1.07 ng/dL (0.76-1.46)
[2020-09-16 11:21] LABS: Hepatitis C Antibody REACTIVE (Nonreactive)
[2020-09-18 03:07] LABS: HCV Quant. RNA PCR HCV Not Detected IU/mL (.)
[2020-09-18 08:15] LABS: Anti-Thyroglobulin AB < 1.0 IU/mL (0.0-0.9); Thyroid Peroxidase AB < 9 IU/mL (0-34)
== END ==
PROVIDERS: PCP Family Medicine; Referring Provider Family Medicine; Visit Provider Family Medicine
DX: D64.9 Anemia, unspecified (principal); E06.3 Autoimmune thyroiditis
CPT/HCPCS: 36415; 80053; 82533; 84432; 84439; 84443; 85025; 86376; 86800; 86803; 87522

== ENCOUNTER → 2023-03-18 | Outpatient (CLI) | payer MEDICAID, SELFPAY ==
--- NOTE | 2023-03-18 16:13 | US_ITS ---
STUDY: SUPERFICIAL ULTRASOUND - LEFT FOREARM REASON FOR EXAM: Female, 32 years old. Painful lump to medal forearm; rule out cyst, fluid collection TECHNIQUE: A superficial ultrasound was performed with real-time and static mcknight-scale imaging. COMPARISON: None. FINDINGS: The medial aspect of the forearm was examined with ultrasound. The area of concern corresponds to a 4 mm x 3 mm x 4 mm hypoechoic nodular density just deep to the skin surface. Area of increased echotexture measuring 1.2 cm x 1.37 x 0.5 cm is seen surrounding it. Tissue diagnosis is recommended. US/Ext Non Vasc Limited/Soft Tiss IMPRESSION: Heterogeneous appearance of the palpable abnormality in the medial left forearm as described. Tissue diagnosis recommended. Electronically Signed: Mandeep Hernandez MD at 13:05 EDT ,
== END | disposition home or self-care (01) ==
LOC: US 16:11
PROVIDERS: PCP Family Medicine; Referring Provider Nurse Practitioner Family; Visit Provider Nurse Practitioner Family
DX: R22.32 Localized swelling, mass and lump, left upper limb (principal)
CPT/HCPCS: 76882

== ENCOUNTER → 2025-05-31 | Outpatient (CLI) | payer MEDICAID, SELFPAY ==
[2025-05-31 12:35] LABS: Hematocrit 41.9 % (37-47); Hemoglobin 14.1 g/dL (12.0-15.0); Immature Granulocytes Count 0.060 X10^3/uL (0.0-0.0); Mean Corp Hgb Conc 33.7 g/dL (32-36); Mean Corpuscular Volume 95.2 fL (81-99); Mean Platelet Vol. 9.4 fl (6.2-12.0); NRBC Flagged by Analyzer 0 % (0-5); Platelet Count 435 K/mm3 (150-450); RBC Distribution Width CV 12.5 % (11.6-14.6); RBC Distribution Width SD 43.1 fl (35.1-43.9); Red Blood Count 4.40 M/mm3 (4.2-5.4); White Blood Count 10.9 K/mm3 (4.4-11.0)
[2025-05-31 13:12] LABS: AST(SGOT) 69 U/L (<=31); Alanine Aminotransfer ALT/SGPT 89 U/L (<=34); Albumin, Serum 4.1 g/dL (3.5-5.0); Alkaline Phosphatase 120 U/L (35-104); Anion Gap 15 (5-15); BUN 10 mg/dL (4-19); BUN/Creat Ratio 11.0 RATIO (10-20); Calcium,Total 9.5 mg/dL (7.6-11.0); Carbon Dioxide 21.1 mmol/L (21.0-32.0); Chloride 102 mmol/L (98-108); Cholesterol 192 mg/dL (<=200); Globulin 3.2 g/dL (2.2-4.2); Glucose 97 mg/dL (70-99); Low Density Lipoprotein Calc. 86 mg/dL; Magnesium 2.0 mg/dL (1.5-2.2); Potassium 3.9 mmol/L (3.3-5.1); Triglycerides 186 mg/dL; Very Low Density Lipoprotein 37 mg/dL (5-40); cholesterol:hdl ratio screen 2.81
== END | disposition home or self-care (01) ==
LOC: MTLAB 10:23
PROVIDERS: PCP Family Medicine; Referring Provider Family Medicine; Visit Provider Family Medicine
DX: R03.0 Elevated blood-pressure reading, without diagnosis of hypertension (principal)
CPT/HCPCS: 36415; 80053; 80061; 83735; 84443; 85025

== ENCOUNTER → 2025-06-05 | Outpatient (CLI) | payer MEDICAID, SELFPAY ==
[2025-06-05 09:26] LABS: Mucous, Urine 0 SEEN /hpf (<or=2+); Red Blood Cells-Urine 0 SEEN /hpf (0-5)
[2025-06-05 14:17] LABS: Color, Urine Yellow (Yellow); Glucose, Dipstick Normal (Normal); Ketone-Dipstick Negative (Negative); Leukocyte Esterase-Dipstick Negative /ul (Negative); Nitrite-Dipstick Negative (Negative); Occult Blood-Urine Negative /ul (Negative); Protein-Dipstick 30 mg/dl (Negative); Specific Gravity, Urine 1.025 (1.002-1.030); Urine Bilirubin Dipstick Negative (Negative)
[2025-06-05 14:35] LABS: Squamous Epithelial Cells - UA 0-5 SEEN /hpf (5-10)
[2025-06-05 14:50] LABS: Hepatitis B Surface Antigen Nonreactive (Nonreactive); Hepatitis C Antibody REAC (Nonreactive)
== END | disposition home or self-care (01) ==
LOC: MTLAB 09:17
PROVIDERS: PCP Family Medicine; Referring Provider Family Medicine; Visit Provider Family Medicine
DX: R03.0 Elevated blood-pressure reading, without diagnosis of hypertension (principal); R79.89 Other specified abnormal findings of blood chemistry
CPT/HCPCS: 36415; 81001; 86706; 86803; 87340

== ENCOUNTER → 2025-06-12 | Outpatient (CLI) | payer MEDICAID, SELFPAY ==
[2025-06-16 14:08] LABS: HCV Quant. RNA PCR HCV Not Detected IU/mL (.)
== END | disposition home or self-care (01) ==
LOC: MTLAB 09:48
PROVIDERS: PCP Family Medicine; Referring Provider Family Medicine; Visit Provider Family Medicine
DX: R76.8 Other specified abnormal immunological findings in serum (principal)
CPT/HCPCS: 36415; 87522; 87902